=== PATIENT | female | born 1950 | race Caucasian/White ===

== ENCOUNTER 2018-06-23 17:06 | Inpatient (IN) ==
[2018-06-23] MEDS ORDERED: Morphine Sulfate Inj 2 MG/ML Vial IV.PUSH ONE (19:51)
[2018-06-23] MEDS ORDERED: Sod Chloride 0.9% Inj 1,000 ML IV.SIG SCH ×2 (20:00→22:00)
--- NOTE | 2018-06-23 20:14 | ED ---
HPI General Chief complaint: Abdominal Pain Stated complaint: s/p w/vomiting endoscopic ultrasound upper L abd Time Seen by Provider: 06/23/18 19:43 Source: patient Mode of arrival: ambulatory Limitations: no limitations History of Present Illness HPI narrative: 67yo F with PMH of HTN, bipolar disorder presents to the ED with c/o nausea, vomiting and upper abdominal pain after endoscopic ultrasound with biopsy of pancreatic cyst by Dr. Nunez today. Said she started vomiting after eating. Pain is mainly upper left abdomen but radiates across upper abdomen as well. Moderate severity. Constant. Denies any fever, chest pain, sob, dysuria, hematuria, focal weakness or numbness. Related Data Home Medications Medication Instructions Recorded Confirmed atorvastatin 10 mg PO DAILY 06/07/18 06/23/18 clonazepam 1 mg PO HS PRN 06/07/18 06/23/18 fluoxetine 20 mg PO DAILY 06/07/18 06/23/18 lamotrigine 100 mg PO DAILY 06/07/18 06/23/18 lisinopril 20 mg PO DAILY 06/07/18 06/23/18 pantoprazole 40 mg PO DAILY 06/07/18 06/23/18 tramadol 50 mg PO BID PRN 06/07/18 06/23/18 trazodone 50 mg PO HS 06/07/18 06/23/18 Allergies Allergy/AdvReac Type Severity Reaction Status Date / Time prochlorperazine Allergy Severe Tongue Verified 06/24/18 14:11 swelling Review of Systems ROS: all other systems reviewed are negative [facility] Medical History Medical History Bipolar 1 disorder (Acute) GERD (gastroesophageal reflux disease) (Acute) HTN (hypertension) (Acute) High cholesterol (Acute) Social History Social History Substance History: Past History Second Hand Smoke Exposure: No Smoking Status: Never smoker How Often Do You Have a Drink Containing Alcohol: Monthly or less Recent Travel in [facility] within the Last 8 Weeks: No Recent Out of Country Travel within the Last 8 Weeks: No Exam Narrative Exam Narrative: GENERAL: 67yo F in moderate distress. SKIN: Focused skin assessment warm/dry. HEAD: Atraumatic. Normocephalic. EYES: Pupils equal and round. No scleral icterus. No injection or drainage. ENT: No nasal bleeding or discharge. Mucous membranes pink and moist. NECK: Trachea midline. No JVD. CARDIOVASCULAR: Regular rate and rhythm. No murmur appreciated. RESPIRATORY: No accessory muscle use. Clear to auscultation. Breath sounds equal bilaterally. GASTROINTESTINAL: Abdomen soft, +TTP epigastric and left upper abdomen. No rebound tenderness. Nondistended. MUSCULOSKELETAL: No obvious deformities. No clubbing. No cyanosis. No edema. NEUROLOGICAL: Awake and alert. No obvious cranial nerve deficits. Motor grossly within normal limits. Normal speech. PSYCHIATRIC: Appropriate mood and affect; insight and judgment normal. Course Initial Documented Vital Signs Temperature 97.7 F 06/23/18 17:32 Pulse Rate 91 H 06/23/18 17:32 Respiratory Rate 16 06/23/18 17:32 Blood Pressure 92/64 L 06/23/18 17:32 Pulse Oximetry 100 06/23/18 17:32 Last Documented Vital Signs Temperature 98.2 F 06/24/18 12:00 Pulse Rate 70 06/24/18 12:00 Respiratory Rate 21 06/24/18 12:00 Blood Pressure 125/58 L 06/24/18 12:00 Pulse Oximetry 96 06/24/18 12:00 Medical Decision Making [facility] Narrative Medical decision making narrative: 67yo F with epigastric/left upper abdominal pain after EUS with FNA by Dr. Nunez this morning. Labs reviewed, no leukocytosis. H/H normal. BUN elevated at 21. Liver [place] [address]. [address] a/p showed acute pancreatitis. Solitary calcified gallstone is located near the gallbladder neck. I discussed this finding with GI physician Dr. Archer who feels that the acute pancreatitis is related to the procedure today. Recommends admission, NPO, IVF and pain control. Recommend GI consult and the commercial litigation associate physician will see them tomorrow. GI consult placed. Pt reevaluated at bedside after morphine and zofran and symptoms have improved. Discussed with Dr. Torres and accepted to her service. Medical Screen Exam Complete: Yes Emergency Medical Condition: Yes Differential Diagnosis Differential Diagnosis: Pancreatitis vs. perforation vs. hematoma Lab Data Result diagrams: 06/23/18 23:15 06/24/18 04:50 Lab Results 06/23/18 06/23/18 06/23/18 Range/Units 20:00 20:00 23:15 CBC w Diff Auto diff final Auto diff final WBC 11.4 H 10.8 (4.0-11.0) th/mm3 RBC 4.94 4.36 (4.00-5.30) mil/mm3 Hgb 14.2 12.8 (11.6-15.3) gm/dL Hct 43.2 38.1 (35.0-46.0) % MCV 87.3 87.4 (80.0-100.0) fL MCH 28.8 29.5 (27.0-34.0) pg MCHC 33.0 33.7 (32.0-36.0) % RDW 13.3 13.4 (11.6-17.2) % Plt Count 352 306 (150-450) th/mm3 MPV 8.0 7.9 (7.0-11.0) fL Neut % (Auto) 90.3 H 88.0 H (16.0-70.0) % Lymph % (Auto) 5.5 L 5.1 L (9.0-44.0) % [place] % (Auto) 3.7 3.7 (0.0-8.0) % Eos % (Auto) 0.4 0.1 (0.0-4.0) % Baso % (Auto) 0.1 3.1 H (0.0-2.0) % Neut # (Auto) 10.4 H 9.6 H (1.8-7.7) th/mm3 Lymph # (Auto) 0.6 L 0.5 L (1.0-4.8) th/mm3 [place] # (Auto) 0.4 0.4 (0.0-0.9) th/mm3 Eos # (Auto) 0.0 0.0 (0.0-0.4) th/mm3 Baso # (Auto) 0.0 0.3 H (0.0-0.2) th/mm3 WBC Differential . . Differential Comment . . Sodium 136 (136-145) meq/L Potassium 3.4 L (3.5-5.1) meq/L Chloride 101 (98-107) meq/L Carbon Dioxide 29.2 (21.0-32.0) meq/L Anion Gap 6 (5-15) meq/L BUN 21 H (7-18) mg/dL Creatinine 0.88 (0.50-1.00) mg/dL Estimated GFR 64 L (>89) mL/min Random Glucose 148 H (74-106) mg/dL Calcium 9.6 (8.5-10.1) mg/dL Total Bilirubin 0.4 (0.2-1.0) mg/dL AST 19 (15-37) U/L ALT 12 (10-53) U/L Alkaline Phosphatase 93 (45-117) U/L Total Protein 7.1 (6.4-8.2) g/dL Albumin 4.2 (3.4-5.0) g/dL Lipase 41032 H (73-393) U/L 06/23/18 06/24/18 06/24/18 Range/Units 23:15 04:50 04:50 CBC w Diff WBC (4.0-11.0) th/mm3 RBC (4.00-5.30) mil/mm3 Hgb (11.6-15.3) gm/dL Hct (35.0-46.0) % MCV (80.0-100.0) fL MCH (27.0-34.0) pg MCHC (32.0-36.0) % RDW (11.6-17.2) % Plt Count (150-450) th/mm3 MPV (7.0-11.0) fL Neut % (Auto) (16.0-70.0) % Lymph % (Auto) (9.0-44.0) % [place] % (Auto) (0.0-8.0) % Eos % (Auto) (0.0-4.0) % Baso % (Auto) (0.0-2.0) % Neut # (Auto) (1.8-7.7) th/mm3 Lymph # (Auto) (1.0-4.8) th/mm3 [place] # (Auto) (0.0-0.9) th/mm3 Eos # (Auto) (0.0-0.4) th/mm3 Baso # (Auto) (0.0-0.2) th/mm3 WBC Differential Differential Comment Sodium 139 (136-145) meq/L Potassium 3.9 (3.5-5.1) meq/L Chloride 108 H (98-107) meq/L Carbon Dioxide 25.2 (21.0-32.0) meq/L Anion Gap 6 (5-15) meq/L BUN 16 (7-18) mg/dL Creatinine 0.63 (0.50-1.00) mg/dL Estimated GFR Greater than 89 (>89) mL/min Random Glucose 119 H (74-106) mg/dL Calcium 8.1 L D (8.5-10.1) mg/dL Total Bilirubin (0.2-1.0) mg/dL AST (15-37) U/L ALT (10-53) U/L Alkaline Phosphatase (45-117) U/L Total Protein (6.4-8.2) g/dL Albumin (3.4-5.0) g/dL Lipase 08892 H 32959 H (73-393) U/L Imaging Data Radiologist's impression: Abdomen/Pelvis CT 06/23/18 19:51 CONCLUSION: 1. Prominent amount of fluid in the central abdomen surrounding the pancreas and extending into the mesentery without tracking into the dependent pelvis. Findings suggest acute pancreatitis. 2. Solitary calcified gallstone is located near the gallbladder neck. Discharge Plan Discharge Disposition Patient Disposition: ED Admit(ED Internal Use Only) Discharge Order Discharge Orders: ED Use Only Admit Order (Routine); Ordered 06/23/18 Ordered By: Cayla Duque Discharge Details Diagnosis: Pancreatitis Physicians Team ED Provider: Cayla Duque Primary Care Provider: UNKNOWN, Attending Provider: Jasmina Reyes Other Providers: Alivia Rushing Status ED Status: Left Department Discharge Information Discharge Date/Time: 06/23/18 23:30
[2018-06-23 20:20] LABS: Chloride 101 meq/L (98-107); Potassium 3.4 meq/L (3.5-5.1); Sodium 136 meq/L (136-145)
[2018-06-23 20:23] LABS: Calcium 9.6 mg/dL (8.5-10.1)
[2018-06-23 20:24] LABS: Albumin 4.2 g/dL (3.4-5.0); Anion Gap 6 meq/L (5-15); Blood Urea Nitrogen 21 mg/dL (7-18); Carbon Dioxide 29.2 meq/L (21.0-32.0); Glucose,Random 148 mg/dL (74-106)
[2018-06-23 20:26] LABS: Alanine Aminotransferase 12 U/L (10-53); Aspartate Aminotransferase 19 U/L (15-37)
[2018-06-23 20:27] LABS: Glomerular Filtration Rate 64 mL/min (>89)
[2018-06-23 20:28] LABS: Total Protein 7.1 g/dL (6.4-8.2)
[2018-06-23 20:29] LABS: Alkaline Phosphatase 93 U/L (45-117); Lipase 22048 U/L (73-393)
[2018-06-23] MEDS ORDERED: Morphine Inj 4 MG/ML Vial IV.PUSH ONE (20:35)
[2018-06-23 20:40] LABS: Baso % (Auto) 0.1 % (0.0-2.0); Eos % (Auto) 0.4 % (0.0-4.0); Hematocrit 43.2 % (35.0-46.0); Hemoglobin 14.2 gm/dL (11.6-15.3); Lymph # (Auto) 0.6 th/mm3 (1.0-4.8); Lymph % (Auto) 5.5 % (9.0-44.0); Mean Corpuscular Hemoglobin 28.8 pg (27.0-34.0); Mean Corpuscular Volume 87.3 fL (80.0-100.0); Mono # (Auto) 0.4 th/mm3 (0.0-0.9); Mono % (Auto) 3.7 % (0.0-8.0); Neut # (Auto) 10.4 th/mm3 (1.8-7.7); Neut % (Auto) 90.3 % (16.0-70.0); Platelet Count 352 th/mm3 (150-450); Red Blood Count 4.94 mil/mm3 (4.00-5.30); Red Cell Distribution Width 13.3 % (11.6-17.2); White Blood Count 11.4 th/mm3 (4.0-11.0)
--- NOTE | 2018-06-23 21:22 | CT ---
EXAM DATE: 06/23/2018 9:15 PM EST AGE/SEX: 67 years / Female INDICATIONS: Vomiting. Left upper quadrant pain. CLINICAL DATA: This is the patient's initial encounter. Patient reports that signs and symptoms have been present for 1 day and indicates a pain score of 5/10. MEDICAL/SURGICAL HISTORY: Gastroesophageal reflux disease. Bipolar disorder. High cholesterol. Hypertension. . ORAL CONTRAST: No oral contrast ingested. RADIATION DOSE: 6.61 CTDI (mGy) COMPARISON: [facility], CT ABDOMEN & PELVIS W CONTRAST, 06/07/2018. . TECHNIQUE: Multiple contiguous axial images were obtained through the abdomen and pelvis following b olus infusion of 97 ml Omnipaque 350 (iohexol) nonionic water-soluble contrast as a single exam dos e. No oral contrast ingested. Using automated exposure control and adjustment of the mA and/or kV ac cording to patient size, radiation dose was kept as low as reasonably achievable to obtain optimal di agnostic quality images. DICOM format image data is available electronically for review and comparis on. FINDINGS: Lower Lungs: The visualized lower lungs are clear. Liver: The liver has a homogeneous density without space-occupying lesion. There is no dilation of th e biliary tree. 7 mm calcified gallstone is located near the neck (previously was located in the body ). Spleen: Homogeneous density without enlargement. Pancreas: Abnormal. There is prominent fluid in the anterior pararenal space surrounding the head, b clifton, and tail of pancreas and extending into the central mesentery. No pancreatic ductal dilatation. 2 lobular cystic areas in the tail the pancreas are unchanged from prior CT in May 2018. Kidneys: Normal in size and shape. No evidence of mass or hydronephrosis. Adrenal Glands: Unremarkable. Aorta: The aorta and proximal iliac vessels are grossly unremarkable without aneurysmal dilation. Bowel/Mesentery: The bowel loops are grossly unremarkable. The cecum and sigmoid colon have a normal configuration. Abdominal Wall: Intact. Retroperitoneum: No evidence of adenopathy in the retrocrural, para-aortic, or deep pelvic regions. Bladder: Contours are smooth. No evidence of free fluid in the pelvis. No bowel/mesentery no dilated loops of small or large bowel. Reproductive Organs: No abnormal masses or calcifications seen. Inguinal: The inguinal region is unremarkable without evidence of adenopathy. Bony Structures: Unremarkable. CONCLUSION: 1. Prominent amount of fluid in the central abdomen surrounding the pancreas and extending into the mesentery without tracking into the dependent pelvis. Findings suggest acute pancreatitis. 2. Solitary calcified gallstone is located near the gallbladder neck. Electronically signed by: Raimundo Gifford MD Board Certified Radiologist 06/23/2018 9:21 PM EST
[2018-06-23] MEDS: Enoxaparin Inj 30 MG/0.3 ML Syringe SQ SCH (23:26)
[2018-06-23 23:47] LABS: Baso # (Auto) 0.3 th/mm3 (0.0-0.2); Baso % (Auto) 3.1 % (0.0-2.0); Eos % (Auto) 0.1 % (0.0-4.0); Hematocrit 38.1 % (35.0-46.0); Hemoglobin 12.8 gm/dL (11.6-15.3); Lymph # (Auto) 0.5 th/mm3 (1.0-4.8); Lymph % (Auto) 5.1 % (9.0-44.0); Mean Corpuscular HGB Conc 33.7 % (32.0-36.0); Mean Corpuscular Hemoglobin 29.5 pg (27.0-34.0); Mean Corpuscular Volume 87.4 fL (80.0-100.0); Mean Platelet Volume 7.9 fL (7.0-11.0); Mono # (Auto) 0.4 th/mm3 (0.0-0.9); Mono % (Auto) 3.7 % (0.0-8.0); Neut # (Auto) 9.6 th/mm3 (1.8-7.7); Platelet Count 306 th/mm3 (150-450); Red Blood Count 4.36 mil/mm3 (4.00-5.30); Red Cell Distribution Width 13.4 % (11.6-17.2); White Blood Count 10.8 th/mm3 (4.0-11.0)
[2018-06-24] MEDS: traZODone 50 MG Tablet PO PRN (00:01)
[2018-06-24] MEDS: Morphine Inj 4 MG/ML Vial IV.PUSH PRN ×6 (02:27→21:53)
[2018-06-24] MEDS: FLUoxetine 20 MG Capsule PO SCH (10:42)
[2018-06-24 12:17] LABS: Chloride 108 meq/L (98-107); Potassium 3.9 meq/L (3.5-5.1); Sodium 139 meq/L (136-145)
[2018-06-24] MEDS ORDERED: clonazePAM 1 MG Tablet PO PRN (12:33)
[2018-06-24 12:36] LABS: Anion Gap 6 meq/L (5-15); Blood Urea Nitrogen 16 mg/dL (7-18); Calcium 8.1 mg/dL (8.5-10.1); Carbon Dioxide 25.2 meq/L (21.0-32.0); Glomerular Filtration Rate Greater Than 89 mL/min (>89); Glucose,Random 119 mg/dL (74-106)
[2018-06-24] MEDS: lamoTRIgine 100 MG Tablet PO SCH (13:13)
[2018-06-24] MEDS: Piperacil/Tazo 4.5 GM Premix 4.5 GM/100 ML BAG IV.SIG SCH ×2 (13:14→20:19)
[2018-06-24] MEDS ORDERED: Diatrizoate Meglum/Diatrizoate Sod Liq 9 ML UDC PO ONE (16:23)
--- NOTE | 2018-06-24 17:18 | P.HP ---
History of Present Illness Service: medicine Primary Care Physician: UNKNOWN History of Present Illness: This is the second time H+P is done on this patient as first did not save. 67 year old female presents to the ER after developing nausea and vomiting and upper abdominal pain . Earlier in the day she had undergone an EUS with FNA of cystic mass of tail of the pancreas. She state she did well after the procedure until she ate something at home. The mass was an incidental finding on ct scan after she presented to the ER earlier in the month for lower abdominal pain. She has been diagnosed with inguinal hernia and has been following with general surgery for this. On presentation her lipase was [id number] workers compensation claims specialist was called from the ER and per report he indicated this may have secondary to the biopsy and indicated the patient be admitted to the medical service and they would be seen today. The patient is still having abdominal pain and nausea. No fever or chills, no emesis since last pm. - Diagnosis (1) Pancreatitis (2) Bipolar disorder Inpatient Certification: I certify that the inpatient services were ordered in accordance with Medicare regulations governing the order. This includes certification that hospital inpatient services are reasonable and necessary and in the case of services not specified as inpatient-only under 42 CFR 419.22(n), that they are appropriately provided as inpatient services in accordance to with the 2-midnight benchmark under 43 CFR 412.3(e) Estimated Total Length of Stay (Days): 3 Plans for Post Hospital Care: Not yet determined Review of Systems Constitutional: Denies chills, Denies fever(s) Ears, Nose, Mouth, and Throat: Denies dry mouth Cardiovascular: Denies chest pain Respiratory: Denies shortness of breath Gastrointestinal: Reports abdominal pain, Reports nausea, Reports vomiting Comments: diffuse abdominal pain mainly across entire upper abdomen, bloating Musculoskeletal: Reports back pain, Reports neck pain Comments: shoulder pain Comments: has been manic with her bipolar but has been having her medications adjusted and doing much better Allergic/Immunologic: Reports tongue swelling PMFSH - History History Provided By: Patient, Family Member, Medical Record - Medical History Medical History: Medical History (Last Reviewed 06/24/18 @ 16:47 by Jasmina Reyes MD) Bipolar 1 disorder GERD (gastroesophageal reflux disease) HTN (hypertension) High cholesterol - Tobacco History Second Hand Smoke Exposure: No Tobacco Use In Past 30 Days: No Smoking Status: Never smoker - Alcohol History How Often Do You Have a Drink Containing Alcohol: Monthly or less - Substance Use History Substance History: Past History - Substance Use Type Marijuana Status: Sustained Remission Route Used: Inhalation Reason for Use: Get High - Travel History Recent Travel in the [place] Within the Last 8 Weeks: No Recent Travel Out of the Country Within the Last 8 Weeks: No - Immunization History Tetanus Immunization: <5 Years Hx Influenza Vaccine This Season: Yes Medications and Allergies Active Medications: Active Medications Atorvastatin Calcium (Lipitor) 10 mg PO DAILY [facility] Last Admin: 06/24/18 10:42 Dose: 10 mg Clonazepam (Klonopin) 1 mg PO HS PRN PRN Reason: Sleep Enoxaparin Sodium (Lovenox Inj) 30 mg SQ Q24H [facility] Last Admin: 06/23/18 23:26 Dose: 30 mg Fluoxetine HCl (Prozac) 20 mg PO DAILY [facility] Last Admin: 06/24/18 10:42 Dose: 20 mg Potassium Chloride/Sodium Chloride (Ns + Kcl 20 Meq Inj) 1,000 mls @ 200 mls/ hr IV.CONT .Q5H [facility] Last Infusion: 06/24/18 16:20 Dose: Infused Piperacillin/Tazobactam/Dextrose (Zosyn 4.5 Gm Premix) 4.5 gm in 100 mls @ 200 mls/hr IV.SIG Q6H [facility] Last Infusion: 06/24/18 13:47 Dose: Infused Lamotrigine (Lamictal) 100 mg PO DAILY [facility] Last Admin: 06/24/18 13:13 Dose: 100 mg Morphine Sulfate (Morphine Inj) 4 mg IV.PUSH Q4H PRN PRN Reason: pain 1-10 &/or fever > 101F Last Admin: 06/24/18 13:28 Dose: 4 mg Ondansetron HCl (Zofran Inj) 8 mg IV.PUSH Q6H PRN PRN Reason: NAUSEA OR VOMITING Last Admin: 06/24/18 13:11 Dose: 8 mg Pantoprazole Sodium (Protonix) 40 mg PO DAILY [facility] Last Admin: 06/24/18 10:42 Dose: 40 mg Paroxetine HCl (Paxil) 10 mg PO DAILY [facility] Last Admin: 06/24/18 13:13 Dose: 10 mg Sodium Chloride (Ns Flush) 2 ml IV.FLUSH BID [facility] Last Admin: 06/24/18 10:34 Dose: Not Given Sodium Chloride (Ns Flush) 2 ml IV.FLUSH PRN PRN PRN Reason: FLUSH AFTER USING IV ACCESS Trazodone HCl (Desyrel) 50 mg PO HS PRN PRN Reason: INSOMNIA Last Admin: 06/24/18 00:01 Dose: 50 mg Allergies Allergy/AdvReac Type Severity Reaction Status Date / Time prochlorperazine Allergy Severe Tongue Verified 06/24/18 14:11 swelling Home Medications Medication Instructions Recorded Confirmed Type atorvastatin 10 mg PO DAILY 06/07/18 06/23/18 History clonazepam 1 mg PO HS PRN 06/07/18 06/23/18 History fluoxetine 20 mg PO DAILY 06/07/18 06/23/18 History lamotrigine 100 mg PO DAILY 06/07/18 06/23/18 History lisinopril 20 mg PO DAILY 06/07/18 06/23/18 History pantoprazole 40 mg PO DAILY 06/07/18 06/23/18 History tramadol 50 mg PO BID PRN 06/07/18 06/23/18 History trazodone 50 mg PO HS 06/07/18 06/23/18 History paroxetine HCl [Paxil] 10 mg PO DAILY 06/24/18 06/24/18 History Exam Vital signs: Vital Signs 06/23/18 17:32 06/23/18 20:35 06/23/18 21:16 Temperature 97.7 F Pulse Rate 91 H 80 92 H Respiratory Rate 16 Blood Pressure 92/64 L 138/79 142/72 H Pulse Oximetry 100 99 98 06/23/18 22:10 06/23/18 23:30 06/24/18 00:00 Temperature 98.9 F 97.2 F L Pulse Rate 90 82 Respiratory Rate 20 18 Blood Pressure 141/77 H 153/74 H 130/73 Pulse Oximetry 95 06/24/18 08:00 06/24/18 12:00 Temperature 98.8 F 98.2 F Pulse Rate 83 70 Respiratory Rate 21 21 Blood Pressure 127/67 125/58 L Pulse Oximetry 95 96 Intake & Output 06/23/18 06/24/18 06/24/18 18:59 06:59 18:59 Intake Total 2995 / 2995 700 / 700 Output Total 400 / 400 Balance 2995 / 2995 300 / 300 Weight 58 kg 58 kg Intake: IV 2875 / 2875 700 / 700 NS + KCl 20 mEq Inj 1,000 ML @ 875 / 875 600 / 600 200 mls/hr IV.CONT .Q5H [facility] Rx# :[id number] Zosyn 4.5 GM Premix 4.5 gm In 100 / 100 100 ml @ 200 mls/hr IV.SIG Q6H [facility] Rx#:[id number] NS Inj 1,000 ML @ 1000 mls/hr 1999 / 1999 IV.SIG BOLUS [facility] Rx#:[id number] Oral 0 / 0 Oral Supplement 120 / 120 Output: Urine 400 / 400 Other: # Voids 1 Date of Last Bowel Movement 06/23/18 06/24/18 Weight On Admission 55.776 kg - Constitutional moderate distress - Routine HEENT Exam Head: Present: normocephalic Eye: Present: EOMI ENT: Present: mucous membranes dry - Routine Neck Exam Present: supple - Routine Respiratory Exam Present: CTA bilaterally - Routine Cardiovascular Exam Present: RRR - Routine Abdominal Exam Present: normoactive bowel sounds, distended Comments: diffusely tender , increased across upper abdomen and midepigastric region - Routine Extremities Exam Present: full ROM. Absent: edema - Routine Skin Exam Present: intact, dry, warm - Routine Neurological Exam Present: alert, oriented X3 Results - Labs CBC & Chem 7: 06/23/18 23:15 06/24/18 04:50 Labs: Laboratory Results - last 24 hr 06/23/18 06/23/18 06/23/18 20:00 20:00 23:15 CBC w Diff Auto diff final Auto diff final WBC 11.4 H 10.8 RBC 4.94 4.36 Hgb 14.2 12.8 Hct 43.2 38.1 MCV 87.3 87.4 MCH 28.8 29.5 MCHC 33.0 33.7 RDW 13.3 13.4 Plt Count 352 306 MPV 8.0 7.9 Neut % (Auto) 90.3 H 88.0 H Lymph % (Auto) 5.5 L 5.1 L [place] % (Auto) 3.7 3.7 Eos % (Auto) 0.4 0.1 Baso % (Auto) 0.1 3.1 H Neut # (Auto) 10.4 H 9.6 H Lymph # (Auto) 0.6 L 0.5 L [place] # (Auto) 0.4 0.4 Eos # (Auto) 0.0 0.0 Baso # (Auto) 0.0 0.3 H WBC Differential . . Differential Comment . . Sodium 136 Potassium 3.4 L Chloride 101 Carbon Dioxide 29.2 Anion Gap 6 BUN 21 H Creatinine 0.88 Estimated GFR 64 L Random Glucose 148 H Calcium 9.6 Total Bilirubin 0.4 AST 19 ALT 12 Alkaline Phosphatase 93 Total Protein 7.1 Albumin 4.2 Lipase 07271 H 06/23/18 06/24/18 06/24/18 23:15 04:50 04:50 CBC w Diff WBC RBC Hgb Hct MCV MCH MCHC RDW Plt Count MPV Neut % (Auto) Lymph % (Auto) [place] % (Auto) Eos % (Auto) Baso % (Auto) Neut # (Auto) Lymph # (Auto) [place] # (Auto) Eos # (Auto) Baso # (Auto) WBC Differential Differential Comment Sodium 139 Potassium 3.9 Chloride 108 H Carbon Dioxide 25.2 Anion Gap 6 BUN 16 Creatinine 0.63 Estimated GFR Greater than 89 Random Glucose 119 H Calcium 8.1 L D Total Bilirubin AST ALT Alkaline Phosphatase Total Protein Albumin Lipase 15585 H 84391 H - Imaging Impressions Abdomen/Pelvis CT 06/23/18 19:51 CONCLUSION: 1. Prominent amount of fluid in the central abdomen surrounding the pancreas and extending into the mesentery without tracking into the dependent pelvis. Findings suggest acute pancreatitis. 2. Solitary calcified gallstone is located near the gallbladder neck. Caprini VTE Risk Assessment Caprini VTE Risk Assessment: Moderate/High Risk (score >= 2) Caprini Risk Assessment Model: Point Value = 1 Point Value = 2 Point Value = 3 Point Value = 5 Age 41-60 Minor surgery BMI > 25 kg/m2 Swollen legs Varicose veins or History of unexplained or recurrent spontaneous Oral contraceptives or hormone replacement Sepsis (< 1 month) Serious lung disease, including pneumonia (< 1 month) Abnormal pulmonary function Acute myocardial infarction Congestive heart failure (< 1 month) History of inflammatory bowel disease Medical patient at bed rest Age 61-74 Arthroscopic surgery Major open surgery (> 45 min) Laparoscopic surgery (> 45 min) Malignancy Confined to bed (> 72 hours) Immobilizing plaster cast Central venous access Age >= 75 History of VTE Family history of VTE Factor V Leiden Prothrombin [id number] Lupus anticoagulant Anticardiolipin antibodies Elevated serum homocysteine Heparin-induced thrombocytopenia Other congenital or acquired thrombophilia Stroke (< 1 month) Elective arthroplasty Hip, pelvis, or leg fracture Acute spinal cord injury (< 1 month) Prophylaxis Regimen: Total Risk Factor Score Risk Level Prophylaxis Regimen 0-1 Low Early ambulation 2 Moderate Order ONE of the following: *Sequential Compression Device (SCD) *Heparin 5000 units SQ BID 3-4 Higher Order ONE of the following medications: *Heparin 5000 units SQ TID *Enoxaparin/Lovenox 40 mg SQ daily (WT < 150 kg, CrCl > 30 mL/min) *Enoxaparin/Lovenox 30 mg SQ daily (WT < 150 kg, CrCl > 10-29 mL/min) *Enoxaparin/Lovenox 30 mg SQ BID (WT < 150 kg, CrCl > 30 mL/min) AND/OR *Sequential Compression Device (SCD) 5 or more Highest Order ONE of the following medications: *Heparin 5000 units SQ TID (Preferred with Epidurals) *Enoxaparin/Lovenox 40 mg SQ daily (WT < 150 kg, CrCl > 30 mL/min) *Enoxaparin/Lovenox 30 mg SQ daily (WT < 150 kg, CrCl > 10-29 mL/min) *Enoxaparin/Lovenox 30 mg SQ BID (WT < 150 kg, CrCl > 30 mL/min) AND *Sequential Compression Device (SCD) Assessment and Plan - Assessment (1) Pancreatitis Code(s): K85.90 - Acute pancreatitis without necrosis or infection, unspecified Status: Acute Plan: acute pancreatitis after eus with fna for pancreatic tail mass. Will continue with IV fluids , pain control. Discussed case with GI who will be in to see her. Her surgeon looked at her ct but did not feel that at this point was a surgical case, also discussed with IR who reviewed CT and this point felt no procedure was indicated. Will continue to manage medically. [facility] . She is unable to take many antiemetics due to her allergy history , Will increase her zofran to 8mg. (2) Bipolar disorder Code(s): F31.9 - Bipolar disorder, unspecified Status: Acute Plan: per report she has been doing better with recent adjustment of her medications. will try to continue her regimen. - Plan Discussed Condition With: patient and daughter (1) Pancreatitis Qualifiers: Chronicity: acute (2) Bipolar disorder Qualifiers: Active/Remission status: currently active
--- NOTE | 2018-06-24 17:38 | MB ---
cc: Alivia Rushing MD DATE: 06/24/2018 REFERRING PHYSICIAN: Dr. Brian Richard REASON FOR CONSULTATION: Post-endoscopic ultrasound, pancreatitis, abdominal pain. HISTORY OF PRESENT ILLNESS: Ms. Lee is a very pleasant 67-year-old lady known to us from outpatient visits. She was followed up in the office for pancreatic tail cystic lesion. She underwent an endoscopic ultrasound yesterday with Dr. Nunez with fine needle aspiration. She was discharged home. Post procedure, the patient came to the emergency room for evaluation of severe abdominal pain, nausea and vomiting, workup suggesting possible pancreatitis. She was admitted to the hospital for further evaluation and treatment. The patient had a CT done in the emergency room, was evaluated by Dr. Mcgrath who is following her on an outpatient basis for an inguinal hernia. He became concerned with the amount of fluid noted in her abdomen, advised to transfer her to [facility] hospital and possible interventional radiology consultation with drainage . Dr. Mcgrath was consulted officially too. The patient feels better than yesterday, her pain is slightly better. She responds well to morphine. No nausea, vomiting. No bowel movements. No fever. 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 ALLERGIES: PROCHLORPERAZINE. MEDICATIONS: 1. Atorvastatin. 2. Clonazepam. 3. Enoxaparin. 4. Fluoxetine. 5. Lamotrigine. 6. Morphine. 7. Zofran. 8. Protonix. 9. Zosyn. 10. Potassium chloride. 11. Trazodone. At home, she is on: 1. Trazodone. 2. Tramadol. 3. Pantoprazole. 4. Lisinopril. 5. Lamotrigine. 6. Fluoxetine. 7. Clonazepam. 8. Atorvastatin. SOCIAL HISTORY: She denies smoking, past history of substance use, but not currently. Alcohol occasionally. REVIEW OF SYSTEMS: CONSTITUTIONAL: She denies any fever, chills, weight loss or weight gain. ENT: No alteration of baseline hearing or visual activity. PULMONARY: Denies any chest pain, shortness of breath. GASTROINTESTINAL: As above. GENITOURINARY: Denies dysuria or hematuria. HEMATOLOGIC: No history of anemia or bleeding disorder. SKIN: No alteration in baseline skin lesion. NEUROLOGIC: No history of TIA or CVA kind of symptoms. PHYSICAL EXAMINATION: GENERAL: She is sitting comfortably in bed, in no acute distress. VITAL SIGNS: Temperature is 98.2, pulse is 70, blood pressure 125/58, saturation 96. HEENT: PERRLA. NECK: No JVD. No lymphadenopathy. CHEST: Clear to auscultation and palpation. CARDIOVASCULAR: S1, S2. No murmur. ABDOMEN: Soft, but very tender in the right upper quadrant, mid epigastrium and lower abdomen. CENTRAL NERVOUS SYSTEM: Awake, alert, oriented x3. No focal signs identified. LABORATORY DATA: Her hemoglobin 12.8 was 14.2. White count 11.4 on admission, currently 10.8, platelets 306. Chemistry suggestive of normal liver enzymes. Lipase was 22,048, currently 16,543, glucose 119, was 148. The patient had a CT abdomen and pelvis done yesterday upon her admission that suggested presence of prominent amount of fluid in the central abdomen surrounding the pancreas and extending into the mesentery without tracking into the deep pelvis findings suggestive of acute pancreatitis, solitary calcified gallstones located near the gallbladder neck. IMPRESSION: Pancreatitis post endoscopic ultrasound, no indication of active bleeding or acute abdomen at this time. RECOMMENDATIONS: Monitor CBC, liver enzymes, lipase. Agree with transfer to the [facility] for possible further evaluation and treatment. The patient is a transfer to the intensive care unit per Dr. Mcgrath's request. Consult Dr. Mcgrath. Interventional radiology was already consulted. No intervention at this time. repeat CT abdomen and pelvis. Continue IV antibiotics, n.p.o., supportive care. I would like to thank Dr. Brian Richard for referring her to our office for consultation. Findings and plan were discussed with the patient in detail. Thank you again. We will Will continue to follow the patient along with you. Alivia Rushing MD BSB/ct , 04:21 PM , 04:34 PM MTDD
[2018-06-24] MEDS: Pantoprazole Inj 40 MG Vial IV.PUSH SCH (17:46)
--- NOTE | 2018-06-24 19:31 | ECG ---
Date Performed: 06/24/2018 Time Performed: 18:57:38 PTAGE: 67 years EKG: Sinus rhythm NORMAL ECG No significant change from prior electrocardiogram. PREVIOUS TRACING : 06/23/2018 09.13 DOCTOR: Negro Monique Interpretating Date/Time 06/24/2018 19:31:16
[2018-06-24 20:17] LABS: Baso % (Auto) 0.2 % (0.0-2.0); Eos % (Auto) 0.3 % (0.0-4.0); Hematocrit 38.1 % (35.0-46.0); Hemoglobin 12.8 gm/dL (11.6-15.3); Lymph # (Auto) 0.7 th/mm3 (1.0-4.8); Lymph % (Auto) 5.7 % (9.0-44.0); Mean Corpuscular HGB Conc 33.5 % (32.0-36.0); Mean Corpuscular Hemoglobin 29.7 pg (27.0-34.0); Mean Corpuscular Volume 88.7 fL (80.0-100.0); Mean Platelet Volume 7.6 fL (7.0-11.0); Mono # (Auto) 0.9 th/mm3 (0.0-0.9); Mono % (Auto) 7.4 % (0.0-8.0); Neut # (Auto) 10.2 th/mm3 (1.8-7.7); Neut % (Auto) 86.4 % (16.0-70.0); Platelet Count 292 th/mm3 (150-450); Red Cell Distribution Width 14.2 % (11.6-17.2); White Blood Count 11.8 th/mm3 (4.0-11.0)
[2018-06-24 20:34] LABS: Anion Gap 5 meq/L (5-15); Blood Urea Nitrogen 10 mg/dL (7-18); Carbon Dioxide 27.3 meq/L (21.0-32.0); Chloride 104 meq/L (98-107); Potassium 3.9 meq/L (3.5-5.1); Sodium 136 meq/L (136-145)
[2018-06-24 20:35] LABS: Alanine Aminotransferase 9 U/L (10-53); Albumin 3.2 g/dL (3.4-5.0); Aspartate Aminotransferase 17 U/L (15-37); Calcium 8.2 mg/dL (8.5-10.1); Glucose,Random 84 mg/dL (74-106)
[2018-06-24 20:37] LABS: Alkaline Phosphatase 73 U/L (45-117); Lipase 13948 U/L (73-393); Total Protein 6.2 g/dL (6.4-8.2)
--- NOTE | 2018-06-24 21:42 | CT ---
EXAM DATE: 06/24/2018 9:32 PM EST AGE/SEX: 67 years / Female INDICATIONS: Abdominal pain. Nausea and vomiting. CLINICAL DATA: This is the patient's initial encounter. Patient reports that signs and symptoms have been present for 1 day and indicates a pain score of 8/10. MEDICAL/SURGICAL HISTORY: Hypertension. Cholecystectomy. ORAL CONTRAST: No oral contrast ingested. RADIATION DOSE: 11.68 CTDI (mGy) COMPARISON: [facility], CT ABDOMEN & PELVIS W CONTRAST, 06/23/2018. [facility], MR ABDOMEN W/ AND W/O CONTRAST , 06/15/2018. [facility], CT ABDOMEN & PELVIS W CONTRAST, 06/07/2018. . TECHNIQUE: Multiple contiguous axial images were obtained through the abdomen and pelvis following b olus infusion of 80 ml Omnipaque 350 (iohexol) nonionic water-soluble contrast as a single exam dos e. No oral contrast ingested. Using automated exposure control and adjustment of the mA and/or kV ac cording to patient size, radiation dose was kept as low as reasonably achievable to obtain optimal di agnostic quality images. DICOM format image data is available electronically for review and comparis on. FINDINGS: Abdomen CT: The spleen, kidneys, adrenals are unremarkable. Approximate 9 mm simple cyst is present in hepatic dome. There is slight ascites throughout the abdomen and pelvis extending down into the paracolic gu tters and all the way down into the cul-de-sac. There is haziness to the fat planes in the upper abdo men particularly around the pancreas. There are multiple cystic areas in the tail of the pancreas the largest one measures 1.9 cm in size. Pancreas appears slightly swollen, however adequately perfused. There is no evidence for any appreciable pathological adenopathy, or bowel obstruction. Tiny right pleural effusion is seen. Slight bilateral lung base atelectasis and/or infiltrate is seen. Gallstone is present with vicarious excretion of contrast into the gallbladder which also appears to be disten ded measures almost 9.[address] CT: There is no evidence for mass, abscess formation, or any significant adenopathy within the pelvis. Th ere is lumbar scoliosis with degenerative changes lower lumbosacral spine not adequately characterize d. CONCLUSION: There is more fluid within the peritoneal cavity since the prior exam and the gallbladder appears more distended . Acute pancreatitis is of primary consideration with cystic areas in the deon l of the pancreas which were evaluated on the patient's prior abdominal MRI from 06/2018 could be pseu docyst versus cystic neoplasm. Electronically signed by: Susu Goodman MD Board Certified Radiologist 06/24/2018 9:41 PM EST
[2018-06-24] MEDS: Enoxaparin Inj 30 MG/0.3 ML Syringe SQ SCH (22:29)
[2018-06-25] MEDS: Piperacil/Tazo 4.5 GM Premix 4.5 GM/100 ML BAG IV.SIG SCH ×4 (01:52→20:53)
[2018-06-25] MEDS: Morphine Inj 4 MG/ML Vial IV.PUSH PRN ×2 (03:47→09:00)
[2018-06-25 06:19] LABS: Baso % (Auto) 0.3 % (0.0-2.0); Eos # (Auto) 0.1 th/mm3 (0.0-0.4); Eos % (Auto) 0.6 % (0.0-4.0); Hematocrit 32.3 % (35.0-46.0); Lymph # (Auto) 0.8 th/mm3 (1.0-4.8); Lymph % (Auto) 7.3 % (9.0-44.0); Mean Corpuscular HGB Conc 34.1 % (32.0-36.0); Mean Corpuscular Hemoglobin 29.8 pg (27.0-34.0); Mean Corpuscular Volume 87.2 fL (80.0-100.0); Mean Platelet Volume 7.4 fL (7.0-11.0); Mono % (Auto) 9.5 % (0.0-8.0); Neut # (Auto) 8.7 th/mm3 (1.8-7.7); Neut % (Auto) 82.3 % (16.0-70.0); Platelet Count 246 th/mm3 (150-450); Red Blood Count 3.71 mil/mm3 (4.00-5.30); Red Cell Distribution Width 13.9 % (11.6-17.2); White Blood Count 10.5 th/mm3 (4.0-11.0)
[2018-06-25 06:58] LABS: Alanine Aminotransferase 9 U/L (10-53); Albumin 2.6 g/dL (3.4-5.0); Anion Gap 5 meq/L (5-15); Aspartate Aminotransferase 17 U/L (15-37); Blood Urea Nitrogen 8 mg/dL (7-18); Calcium 8.1 mg/dL (8.5-10.1); Carbon Dioxide 27.2 meq/L (21.0-32.0); Chloride 106 meq/L (98-107); Glucose,Random 81 mg/dL (74-106); Potassium 4.2 meq/L (3.5-5.1); Sodium 138 meq/L (136-145)
[2018-06-25 07:00] LABS: Alkaline Phosphatase 62 U/L (45-117); Lipase 6045 U/L (73-393); Total Protein 5.3 g/dL (6.4-8.2)
[2018-06-25] MEDS: lamoTRIgine 100 MG Tablet PO SCH (08:52)
[2018-06-25] MEDS: FLUoxetine 20 MG Capsule PO SCH (08:52)
[2018-06-25] MEDS ORDERED: Ketorolac Inj 30 MG/ML (IVP) Vial IV.PUSH ONE (12:50)
[2018-06-25] MEDS ORDERED: Sodium Chlor 0.9% Inj 500 ML IV.SIG SCH (12:50)
[2018-06-25] MEDS ORDERED: HYDROmorphone PF Inj 1 MG/ML Ampul IV.PUSH PRN (12:52)
--- NOTE | 2018-06-25 12:52 | P.PNIM ---
Subjective Interval history: Pt is a 67 y/o F who underwent EUS with FNA of cystic mass of the pancreatic tail 06/23/[address] Jae Nunez. Pt developed worsening abdominal pain at home following the procedure. On admission pt's lipase was elevated at 22K (06/23) and has improved to 6,045 (). Pt had CT A/P (06/24) Pt c/o continued abdominal pain despite current regimen of pain medication. Pt is NPO Physical Exam Vital signs: Last Vital Signs Temp 99.5 F 06/25/18 08:00 Pulse 85 06/25/18 08:00 Resp 20 06/25/18 08:00 BP 89/55 L 06/25/18 08:00 Pulse Ox 95 06/25/18 08:00 Results Labs CBC & Chem 7: 06/27/18 06:36 06/27/18 06:36 Assessment and Plan Assessment (1) Pancreatitis: Code(s): K85.90 - Acute pancreatitis without necrosis or infection, unspecified Status: Acute (2) Bipolar disorder: Code(s): F31.9 - Bipolar disorder, unspecified Status: Acute Plan 1) Pancreatitis, s/p EUS - Pt is a 67 y/o F who underwent EUS with FNA of cystic mass of the pancreatic tail 06/23/[address] Jae Nunez. - Pt developed worsening abdominal pain at home following the procedure. - On admission pt's lipase was elevated at 22K (06/23) and has improved to 6,045 (/). - CT A/P (06/24) - fluid within the peritoneal cavity since the prior exam and the gallbladder appears more distended . - Acute pancreatitis is of primary consideration with cystic areas in the tail of the pancreas which were evaluated on the patient's prior abdominal MRI from 06/2018 could be pseudocyst versus cystic neoplasm Pt c/o continued abdominal pain despite current regimen of pain medication. - Pt is NPO - Case d/w Dr. Trejo (06/25/18) - Case d/w Dr. Lake (06/25/18). He will consult. - Continue aggressive fluid support - Continue pain mgmt was BP readings will allow - repeat cbc, CMP, lipase in AM 2) hypotensive - likely d/t pancreatitis and pain medication - No fever, no leukocytosis - continue IVFs - parameters on pain medications. Progress Note: Quality VTE Deep Vein Thrombosis/Pulmonary Embolism Present on Admission: No _ (1) Bipolar disorder Qualifiers: Active/Remission status: currently active Current bipolar episode type: Current episode severity: Most recent bipolar episode type: Psychotic features: (2) Pancreatitis Qualifiers: Acute pancreatitis complication: Chronicity: acute Pancreatitis type:
[2018-06-25] MEDS ORDERED: Sincalide Inj 5 MCG Vial IV.PUSH ONE (12:54)
--- NOTE | 2018-06-25 12:58 | P.PNGI ---
Subjective Interval history: Abdominal distension, pain Physical Exam Vital signs: Vital Signs 06/24/18 16:00 06/24/18 17:00 06/24/18 18:00 Temperature 99.4 F 99.1 F 100.8 F H Pulse Rate 89 93 H 96 H Respiratory Rate 20 15 18 Blood Pressure 118/56 L 142/80 H 129/66 Pulse Oximetry 95 98 96 06/24/18 19:10 06/24/18 23:14 06/25/18 00:24 Temperature 99.2 F 99.4 F Pulse Rate 96 H 88 89 Respiratory Rate 18 18 Blood Pressure 147/76 H 100/56 L Pulse Oximetry 98 93 L 06/25/18 03:49 06/25/18 07:59 06/25/18 08:00 Temperature 99.1 F 99.5 F Pulse Rate 88 88 85 Respiratory Rate 18 20 Blood Pressure 102/61 89/55 L Pulse Oximetry 94 L 95 Intake & Output 06/24/18 06/25/18 06/25/18 18:59 06:59 18:59 Intake Total 700 / 700 2087 1100 / 1100 Output Total 800 / 800 Balance -100 / -100 2087 1100 / 1100 Weight 58 kg Intake: IV 700 / 700 2087 / 2087 1100 / 1100 NS + KCl 20 mEq Inj 1,000 ML @ 600 / 600 1887 / 188 1000 / 1000 200 mls/hr IV.CONT .Q5H NICOLE Rx# :[id number] Zosyn 4.5 GM Premix 4.5 gm In 100 / 100 200 / 200 100 / 100 100 ml @ 200 mls/hr IV.SIG Q6H NICOLE Rx#:[id number] Oral 0 / 0 0 / 0 Output: Urine 800 / 800 Other: # Voids 1 5 Date of Last Bowel Movement 06/23/18 06/23/18 06/23/18 # Bowel Movements 0 0 - Constitutional no acute distress - Routine HEENT Exam Head: Present: normocephalic - Routine Neck Exam Present: supple - Routine Respiratory Exam Present: CTA bilaterally - Routine Cardiovascular Exam Present: RRR - Routine Abdominal Exam Present: soft, tenderness, distended Results - Labs CBC & Chem 7: 06/25/18 05:43 06/25/18 05:43 Laboratory Results - last 24 hr 06/24/18 06/24/18 06/25/18 19:30 19:30 05:43 WBC 11.8 H 10.5 RBC 4.30 3.71 L Hgb 12.8 11.0 L Hct 38.1 32.3 L MCV 88.7 87.2 MCH 29.7 29.8 MCHC 33.5 34.1 RDW 14.2 13.9 Plt Count 292 246 MPV 7.6 7.4 Neut % (Auto) 86.4 H 82.3 H Lymph % (Auto) 5.7 L 7.3 L [place] % (Auto) 7.4 9.5 H Eos % (Auto) 0.3 0.6 Baso % (Auto) 0.2 0.3 Neut # (Auto) 10.2 H 8.7 H Lymph # (Auto) 0.7 L 0.8 L [place] # (Auto) 0.9 1.0 H Eos # (Auto) 0.0 0.1 Baso # (Auto) 0.0 0.0 WBC Differential . . Differential Comment Auto diff final Auto diff final Sodium 136 Potassium 3.9 Chloride 104 Carbon Dioxide 27.3 Anion Gap 5 BUN 10 Creatinine 0.72 Random Glucose 84 Calcium 8.2 L Total Bilirubin 0.7 AST 17 ALT 9 L Alkaline Phosphatase 73 Total Protein 6.2 L D Albumin 3.2 L D Lipase 06007 H 06/25/18 05:43 WBC RBC Hgb Hct MCV MCH MCHC RDW Plt Count MPV Neut % (Auto) Lymph % (Auto) [place] % (Auto) Eos % (Auto) Baso % (Auto) Neut # (Auto) Lymph # (Auto) [place] # (Auto) Eos # (Auto) Baso # (Auto) WBC Differential Differential Comment Sodium 138 Potassium 4.2 Chloride 106 Carbon Dioxide 27.2 Anion Gap 5 BUN 8 Creatinine 0.69 Random Glucose 81 Calcium 8.1 L Total Bilirubin 0.8 AST 17 ALT 9 L Alkaline Phosphatase 62 Total Protein 5.3 L D Albumin 2.6 L D Lipase 6045 H - Imaging Impressions Abdomen/Pelvis CT 06/24/18 00:00 CONCLUSION: There is more fluid within the peritoneal cavity since the prior exam and the gallbladder appears more distended . Acute pancreatitis is of primary consideration with cystic areas in the tail of the pancreas which were evaluated on the patient's prior abdominal MRI from 06/2018 could be pseudocyst versus cystic neoplasm. Assessment and Plan - Plan Seen and examined in the presence of family. Still with abdominal pain and distension. CT reviewed, HIDA scan and surgical consult ordered. Aggressive IVF, Discussed with Dr العراقي.
[2018-06-25] MEDS ORDERED: Sod Chloride 0.9% Inj 1,000 ML IV.SIG SCH (16:16)
[2018-06-25] MEDS: Pantoprazole Inj 40 MG Vial IV.PUSH SCH (18:10)
--- NOTE | 2018-06-25 18:16 | P.CONGS ---
[facility] Gen Surgery Consult Note Consult date: 06/25/18 Narrative: 67 yo F with acute pancreatitis after EUS with FNA of cystic mass of pancreatic tail on 06/23/18. Lipase initially 22,000 now 6000. Pain has persistent although now after first dose of toradol earlier it is much better. Feels bloated. CT a/p was performed on 06/23 and 06/24- there is intraperitoneal fluid especially peripancreatic, distended gallbladder, one stone in gallbladder, cystic mass of tail of pancreas. Family is with the patient at bedside. BP is marginal. She has gotten 2L fluid boluses today. Review of Systems All other systems reviewed negative except as stated in [facility] - History History Provided By: Patient, Family Member, Medical Record - Medical History Medical History: Medical History (Last Reviewed 06/24/18 @ 16:47 by Jasmina Reyes MD) Bipolar 1 disorder GERD (gastroesophageal reflux disease) HTN (hypertension) High cholesterol - Tobacco History Second Hand Smoke Exposure: No Tobacco Use In Past 30 Days: No Smoking Status: Never smoker - Alcohol History How Often Do You Have a Drink Containing Alcohol: Monthly or less - Substance Use History Substance History: Past History - Substance Use Type Marijuana Status: Sustained Remission Route Used: Inhalation Reason for Use: Get High - Travel History Recent Travel in the [place] Within the Last 8 Weeks: No Recent Travel Out of the Country Within the Last 8 Weeks: No - Immunization History Tetanus Immunization: <5 Years Hx Influenza Vaccine This Season: Yes Medications and Allergies Active Medications: Active Medications Atorvastatin Calcium (Lipitor) 10 mg PO DAILY [facility] Last Admin: 06/25/18 08:52 Dose: 10 mg Clonazepam (Klonopin) 1 mg PO HS PRN PRN Reason: Sleep Enoxaparin Sodium (Lovenox Inj) 30 mg SQ Q24H [facility] Last Admin: 06/24/18 22:29 Dose: 30 mg Fluoxetine HCl (Prozac) 20 mg PO DAILY [facility] Last Admin: 06/25/18 08:52 Dose: 20 mg Hydromorphone HCl (Dilaudid Pf Inj) 1 mg IV.PUSH Q4H PRN PRN Reason: BREAKTHROUGH PAIN Potassium Chloride/Sodium Chloride (Ns + Kcl 20 Meq Inj) 1,000 mls @ 200 mls/ hr IV.CONT .Q5H [facility] Last Admin: 06/25/18 16:28 Dose: 200 mls/hr Piperacillin/Tazobactam/Dextrose (Zosyn 4.5 Gm Premix) 4.5 gm in 100 mls @ 200 mls/hr IV.SIG Q6H [facility] Last Infusion: 06/25/18 13:36 Dose: Infused Ketorolac Tromethamine (Toradol Inj) 15 mg IV.PUSH Q6H PRN PRN Reason: PAIN SCALE 4 TO 10 Lamotrigine (Lamictal) 100 mg PO DAILY [facility] Last Admin: 06/25/18 08:52 Dose: 100 mg Ondansetron HCl (Zofran Inj) 8 mg IV.PUSH Q6H PRN PRN Reason: NAUSEA OR VOMITING Last Admin: 06/24/18 13:11 Dose: 8 mg Pantoprazole Sodium (Protonix Inj) 40 mg IV.PUSH Q24H [facility] Last Admin: 06/24/18 17:46 Dose: Not Given Paroxetine HCl (Paxil) 10 mg PO DAILY [facility] Last Admin: 06/25/18 08:52 Dose: 10 mg Sodium Chloride (Ns Flush) 2 ml IV.FLUSH BID [facility] Last Admin: 06/25/18 08:52 Dose: Not Given Sodium Chloride (Ns Flush) 2 ml IV.FLUSH PRN PRN PRN Reason: FLUSH AFTER USING IV ACCESS Trazodone HCl (Desyrel) 50 mg PO HS PRN PRN Reason: INSOMNIA Last Admin: 06/24/18 00:01 Dose: 50 mg Allergies Allergy/AdvReac Type Severity Reaction Status Date / Time prochlorperazine Allergy Severe Tongue Verified 06/24/18 14:11 swelling Home Medications Medication Instructions Recorded Confirmed Type atorvastatin 10 mg PO DAILY 06/07/18 06/23/18 History clonazepam 1 mg PO HS PRN 06/07/18 06/23/18 History fluoxetine 20 mg PO DAILY 06/07/18 06/23/18 History lamotrigine 100 mg PO DAILY 06/07/18 06/23/18 History lisinopril 20 mg PO DAILY 06/07/18 06/23/18 History pantoprazole 40 mg PO DAILY 06/07/18 06/23/18 History tramadol 50 mg PO BID PRN 06/07/18 06/23/18 History trazodone 50 mg PO HS 06/07/18 06/23/18 History paroxetine HCl [Paxil] 10 mg PO DAILY 06/24/18 06/24/18 History Exam Vital signs: Vital Signs 06/24/18 19:10 06/24/18 23:14 06/25/18 00:24 Temperature 99.2 F 99.4 F Pulse Rate 96 H 88 89 Respiratory Rate 18 18 Blood Pressure 147/76 H 100/56 L Pulse Oximetry 98 93 L 06/25/18 03:49 06/25/18 07:59 06/25/18 08:00 Temperature 99.1 F 99.5 F Pulse Rate 88 88 85 Respiratory Rate 18 20 Blood Pressure 102/61 89/55 L Pulse Oximetry 94 L 95 06/25/18 13:17 06/25/18 14:21 06/25/18 16:00 Temperature 98.9 F 98.3 F Pulse Rate 80 81 Respiratory Rate 20 20 Blood Pressure 88/51 L 94/53 L 81/51 L Pulse Oximetry 94 L 93 L Intake & Output 06/24/18 06/25/18 06/25/18 18:59 06:59 18:59 Intake Total 700 / 700 2087 / 2088 2700 / 2700 Output Total 800 / 800 Balance -100 / -100 2087 / 2087 2700 / 2700 Weight 58 kg Intake: IV 700 / 700 2087 / 2087 2700 / 2700 NS + KCl 20 mEq Inj 1,000 ML @ 600 / 600 1888 / 1888 1000 / 1000 200 mls/hr IV.CONT .Q5H NICOLE Rx# :[id number] Zosyn 4.5 GM Premix 4.5 gm In 100 / 100 200 / 200 200 / 200 100 ml @ 200 mls/hr IV.SIG Q6H NICOLE Rx#:[id number] NS Inj 1,000 ML @ 1000 mls/hr 1000 / 1000 IV.SIG BOLUS NICOLE Rx#:[id number] NS Inj 500 ML @ 1000 mls/hr IV. 500 / 500 SIG BOLUS NICOLE Rx#:[id number] Oral 0 / 0 0 / 0 Output: Urine 800 / 800 Other: # Voids 1 5 1 Date of Last Bowel Movement 06/23/18 06/23/18 06/23/18 # Bowel Movements 0 0 Narrative: GENERAL: Awake and alert. No acute distress. Cooperative. HEAD: Normocephalic. Atraumatic. EYES: Pupils equal round and reactive to light bilaterally. No scleral icterus. ENT: Moist oral mucosa. NECK: Trachea midline. CHEST: Nonlabored breathing. No respiratory distress. CARDIOVASCULAR: Regular rate and rhythm. ABDOMEN: Mild distention. No guarding or rebound. Mild diffuse ttp. EXTREMITIES: No cyanosis or edema. SKIN: Warm, dry, nonjaundiced. Results - Labs 06/25/18 05:43 06/25/18 05:43 Laboratory Results - last 24 hr 06/24/18 06/24/18 06/25/18 19:30 19:30 05:43 WBC 11.8 H 10.5 RBC 4.30 3.71 L Hgb 12.8 11.0 L Hct 38.1 32.3 L MCV 88.7 87.2 MCH 29.7 29.8 MCHC 33.5 34.1 RDW 14.2 13.9 Plt Count 292 246 MPV 7.6 7.4 Neut % (Auto) 86.4 H 82.3 H Lymph % (Auto) 5.7 L 7.3 L [place] % (Auto) 7.4 9.5 H Eos % (Auto) 0.3 0.6 Baso % (Auto) 0.2 0.3 Neut # (Auto) 10.2 H 8.7 H Lymph # (Auto) 0.7 L 0.8 L [place] # (Auto) 0.9 1.0 H Eos # (Auto) 0.0 0.1 Baso # (Auto) 0.0 0.0 WBC Differential . . Differential Comment Auto diff final Auto diff final Sodium 136 Potassium 3.9 Chloride 104 Carbon Dioxide 27.3 Anion Gap 5 BUN 10 Creatinine 0.72 Random Glucose 84 Calcium 8.2 L Total Bilirubin 0.7 AST 17 ALT 9 L Alkaline Phosphatase 73 Total Protein 6.2 L D Albumin 3.2 L D Lipase 57440 H 06/25/18 05:43 WBC RBC Hgb Hct MCV MCH MCHC RDW Plt Count MPV Neut % (Auto) Lymph % (Auto) [place] % (Auto) Eos % (Auto) Baso % (Auto) Neut # (Auto) Lymph # (Auto) [place] # (Auto) Eos # (Auto) Baso # (Auto) WBC Differential Differential Comment Sodium 138 Potassium 4.2 Chloride 106 Carbon Dioxide 27.2 Anion Gap 5 BUN 8 Creatinine 0.69 Random Glucose 81 Calcium 8.1 L Total Bilirubin 0.8 AST 17 ALT 9 L Alkaline Phosphatase 62 Total Protein 5.3 L D Albumin 2.6 L D Lipase 6045 H - Imaging Imaging: ITS Impressions Abdomen/Pelvis CT 06/24/18 00:00 CONCLUSION: There is more fluid within the peritoneal cavity since the prior exam and the gallbladder appears more distended . Acute pancreatitis is of primary consideration with cystic areas in the tail of the pancreas which were evaluated on the patient's prior abdominal MRI from 06/2018 could be pseudocyst versus cystic neoplasm. CT scan - abdomen: report reviewed, image reviewed CT scan - pelvis: report reviewed, image reviewed Assessment and Plan - Assessment (1) Acute pancreatitis Code(s): K85.90 - Acute pancreatitis without necrosis or infection, unspecified Status: Acute - Plan Acute pancreatitis after EUS with FNA - supportive management. Likely routine acute pancreatitis although there is a possiblility of some sort of procedural related problem such as leak of pancreatic fluid from cyst. Case d/ w Dr. العراقي and Dr. Trejo. MRCP will be ordered to further evaluate pancreas structurally. Could consider aspiration of peritoneal fluid for further evaluation but this would pose a risk of infection and will hold off at this time. No plans for surgery. Will follow along.
[2018-06-25] MEDS: Ketorolac Inj 30 MG/ML (IVP) Vial IV.PUSH PRN (18:31)
[2018-06-25] MEDS: Enoxaparin Inj 30 MG/0.3 ML Syringe SQ SCH (22:37)
[2018-06-26] MEDS: Piperacil/Tazo 4.5 GM Premix 4.5 GM/100 ML BAG IV.SIG SCH ×4 (01:06→20:23)
[2018-06-26] MEDS: Ketorolac Inj 30 MG/ML (IVP) Vial IV.PUSH PRN ×2 (01:06→19:34)
--- NOTE | 2018-06-26 04:28 | XR ---
EXAM DATE: 06/26/2018 3:58 AM EST AGE/SEX: 67 years / Female INDICATIONS: Cough. CLINICAL DATA: This is the patient's initial encounter. Patient reports that signs and symptoms have been present for 1 day and indicates a pain score of 0/10. MEDICAL/SURGICAL HISTORY: Hypertension. Cholecystectomy. COMPARISON: No prior exams available for comparison. FINDINGS: Diffuse coarse interstitial prominence and streaky bibasilar parenchymal opacities of undetermined ch ronicity. Accounting for rotation, cardiac contours are satisfactory. CONCLUSION: Diffuse interstitial prominence and streaky basilar parenchymal opacities bilaterally. Electronically signed by: Dane Conway MD Board Certified Radiologist 06/26/2018 4:27 AM EST
[2018-06-26 07:18] LABS: Baso % (Auto) 0.3 % (0.0-2.0); Eos # (Auto) 0.1 th/mm3 (0.0-0.4); Eos % (Auto) 1.7 % (0.0-4.0); Hematocrit 27.8 % (35.0-46.0); Hemoglobin 9.4 gm/dL (11.6-15.3); Lymph # (Auto) 0.7 th/mm3 (1.0-4.8); Lymph % (Auto) 8.8 % (9.0-44.0); Mean Corpuscular HGB Conc 33.8 % (32.0-36.0); Mean Corpuscular Hemoglobin 30.2 pg (27.0-34.0); Mean Corpuscular Volume 89.6 fL (80.0-100.0); Mean Platelet Volume 7.5 fL (7.0-11.0); Mono # (Auto) 0.7 th/mm3 (0.0-0.9); Mono % (Auto) 8.8 % (0.0-8.0); Neut # (Auto) 6.5 th/mm3 (1.8-7.7); Neut % (Auto) 80.4 % (16.0-70.0); Platelet Count 207 th/mm3 (150-450); Red Blood Count 3.11 mil/mm3 (4.00-5.30); Red Cell Distribution Width 13.9 % (11.6-17.2)
[2018-06-26 07:40] LABS: Albumin 2.4 g/dL (3.4-5.0); Anion Gap 9 meq/L (5-15); Aspartate Aminotransferase 17 U/L (15-37); Blood Urea Nitrogen 12 mg/dL (7-18); Carbon Dioxide 22.5 meq/L (21.0-32.0); Chloride 109 meq/L (98-107); Glomerular Filtration Rate Greater Than 89 mL/min (>89); Glucose,Random 62 mg/dL (74-106); Lipase 902 U/L (73-393); Potassium 4.1 meq/L (3.5-5.1); Sodium 140 meq/L (136-145)
[2018-06-26 07:41] LABS: Alanine Aminotransferase 8 U/L (10-53)
[2018-06-26 07:44] LABS: Alkaline Phosphatase 60 U/L (45-117); Total Protein 5.3 g/dL (6.4-8.2)
[2018-06-26] MEDS: FLUoxetine 20 MG Capsule PO SCH ×2 (07:55→10:44)
[2018-06-26] MEDS: lamoTRIgine 100 MG Tablet PO SCH ×2 (07:56→10:43)
[2018-06-26] MEDS ORDERED: Gadobutrol PF 7.5 MMOL/7.5 ML Vial (for RAD) IV.SIG ONE (08:33)
--- NOTE | 2018-06-26 09:00 | MR ---
EXAM DATE: 06/26/2018 8:50 AM EST AGE/SEX: 67 years / Female INDICATIONS: Abdominal pain. CLINICAL DATA: This is the patient's initial encounter. Patient reports that signs and symptoms have been present for 1 day and indicates a pain score of 5/10. MEDICAL/SURGICAL HISTORY: Hypertension. Hypercholesterolemia. None. COMPARISON: [facility], MR ABDOMEN W/ AND W/O CONTRAST, 06/15/2018. [facility], CT ABDOMEN & PELVIS W CONTRAST, 06/24/2018. . TECHNIQUE: Multisequence, multiplanar MRI examination was performed without contrast and after the in travenous administration of 6 ml Gadavist (gadobutrol) contrast as a single exam dose. FINDINGS: Liver: The liver is homogeneous and normal in signal intensity with several small T2 bright lesions. . Intrahepatic Bile Ducts: There is no intrahepatic biliary ductal dilatation. Common Bile Duct: The common bile duct is normal in caliber measuring 3 to 4 mm in size. No filling defects or obstructing lesions are identified. Gallbladder: There is marked distention of the gallbladder which does contain a small gallstone in t he distal body without gallbladder wall thickening. Pancreas: Edematous pancreas with prominent cystic change again seen within the tail.. Pancreatic in flammatory changes and fluid seen. The pancreatic duct is normal in caliber with no filling defects, or obstructing lesions identified. Other: Small bilateral pleural effusions. Abdominal ascites CONCLUSION: 1. Edematous pancreas with prominent cystic change again seen in the tail with peripancreatic fluid collections suggesting pancreatitis in the right clinical setting. 2. Small bilateral pleural effusions and abdominal ascites. 3. Marked distention of the gallbladder and cholelithiasis. 4. No intra or extrahepatic biliary ductal dilatation. Electronically signed by: Brady Clark MD Board Certified Radiologist 06/26/2018 8:58 AM EST
--- NOTE | 2018-06-26 09:54 | P.PNIM ---
Subjective Interval history: Patient report feeling much better today Denies abd pain at this time Lipase down to 902 Physical Exam Vital signs: Last Vital Signs Temp 97.9 F 06/26/18 08:09 Pulse 83 06/26/18 08:09 Resp 16 06/26/18 08:09 BP 138/65 06/26/18 08:09 Pulse Ox 93 L 06/26/18 08:09 Narrative: GENERAL: This is a well-nourished, well-developed patient, in no apparent distress. CARDIOVASCULAR: Regular rate and rhythm RESPIRATORY: Clear to auscultation. Breath sounds equal bilaterally. GASTROINTESTINAL: Abdomen soft, mild tenderness right upper , nondistended. Normal active bowel sounds MUSCULOSKELETAL: Extremities without clubbing, cyanosis, or edema. NEURO: Alert & Oriented x4 to person, place, time, situation. Moves all ext x4 Results Labs CBC & Chem 7: 06/27/18 06:36 06/27/18 06:36 Assessment and Plan Assessment (1) Acute pancreatitis: Code(s): K85.90 - Acute pancreatitis without necrosis or infection, unspecified Status: Acute Plan 1) Pancreatitis, s/p EUS - Pt is a 67 y/o F who underwent EUS with FNA of cystic mass of the pancreatic tail 06/23/[address] Jae Nunez. - Pt developed worsening abdominal pain at home following the procedure. - On admission pt's lipase was elevated at 22K (06/23) and has improved to 6,045 (06/25) -> 902 (06/26) - CT A/P (06/24) - fluid within the peritoneal cavity since the prior exam and the gallbladder appears more distended . - Acute pancreatitis is of primary consideration with cystic areas in the tail of the pancreas which were evaluated on the patient's prior abdominal MRI from 06/2018 could be pseudocyst versus cystic neoplasm - abdominal pain improving (06/26) - Case d/w Dr. Trejo (06/25/18), appreciate assistance - Case d/w Dr. Lake (06/25/18), appreciate assistance - DC IVF start clear liquid diet - Continue pain mgmt was BP readings will allow Cholangiopancreatography MRI 06/26/18 1. Edematous pancreas with prominent cystic change again seen in the tail with peripancreatic fluid collections suggesting pancreatitis in the right clinical setting. 2. Small bilateral pleural effusions and abdominal ascites. 3. Marked distention of the gallbladder and cholelithiasis. 4. No intra or extrahepatic biliary ductal dilatation. - repeat CBC, CMP and lipase in AM 2) Hypotensive - improving - likely d/t pancreatitis and pain medication - No fever, no leukocytosis - DC IVFs - parameters on pain medications. 3) Anemia hgb 11 -> 9.4 likely dilutional recheck H&H ordered Attending Attestation The exam, history, and the medical decision-making described in the above note were completed with the assistance of the mid-level provider. I reviewed and agree with the findings presented. I attest that I had a [id number] encounter with the patient on the same day, and personally performed and documented my assessment and findings in the medical record. Patient examined. Assessment and plan formulated with Viki Echeverria PA-C. I agree with the above. Pain much improved today. start clears. Anticipate d/c to home in 1-2 days. Progress Note: Quality VTE Deep Vein Thrombosis/Pulmonary Embolism Present on Admission: No _ (1) Acute pancreatitis Qualifiers: Acute pancreatitis complication: Pancreatitis type:
[2018-06-26] MEDS ORDERED: HYDROmorphone PF Inj 1 MG/ML Ampul IV.PUSH PRN (09:55)
[2018-06-26] MEDS ORDERED: Sincalide Inj 5 MCG Vial IV.PUSH ONE (11:44)
--- NOTE | 2018-06-26 13:19 | NM ---
EXAM DATE: 06/26/2018 12:42 PM EST AGE/SEX: 67 years / Female INDICATIONS: Abdominal pain with nausea and vomiting. CLINICAL DATA: This is the patient's initial encounter. Patient reports that signs and symptoms have been present for 2 days and indicates a pain score of 7/10. MEDICAL/SURGICAL HISTORY: Gastroesophageal reflux disease. Hypertension. None. COMPARISON: No prior exams available for comparison. No external comparison. DOSE: 4.2 mCi Tc-99m mebrofenin i.v. Medication: 1.15 mcg Cholecystokinin IV No symptomatic response Cholecystokinin was administered by slow infusion over 8 minutes beginning at 75 min. min utes. TECHNIQUE: Following the intravenous administration of radiotracer, dynamic sequential images were pe rformed with continuous acquisition. Time-activity curves were generated. FINDINGS: Hepatic Kinetics: There is prompt uptake of radiotracer in the liver. No focal defects are seen. Ther e is normal rate of washout from the hepatic parenchyma. Biliary Clearance: Activity is first seen in the extrahepatic biliary system at 20 minutes. There is normal excretion into the small bowel. Gallbladder: Activity is first seen in the gallbladder at 20 minutes. Post-CCK: After CCK administration, there is poor emptying of the gallbladder with a 10% ejection fra ction. Common bile duct kinetics are normal and there is no evidence of biliary obstruction. No symp tomatic response after cholecystokinin infusion. Biliary-Enteric Reflux: None observed. CONCLUSION: 1. No cystic duct obstruction or biliary ductal obstruction. 2. Very little response to CCK injection suggesting biliary dyskinesia. Electronically signed by: [place] Rosales MD Board Certified Radiologist 06/26/2018 1:18 PM EST
--- NOTE | 2018-06-26 14:23 | P.PNGS ---
Subjective Interval history: No pain since 3 am. Feels much better today. MRCP showed pancreatitis and the pancreatic cysts. HIDA shows no obstruction- 10% EF. Physical Exam Vital signs: Vital Signs 06/25/18 14:21 06/25/18 16:00 06/25/18 16:06 Temperature 98.3 F Pulse Rate 81 74 Respiratory Rate 20 Blood Pressure 94/53 L 81/51 L Pulse Oximetry 93 L 06/25/18 20:58 06/25/18 21:03 06/25/18 23:56 Temperature 98.8 F Pulse Rate 83 85 83 Respiratory Rate 20 Blood Pressure 98/54 L Pulse Oximetry 98 06/26/18 01:01 06/26/18 03:42 06/26/18 04:05 Temperature 98.8 F 99.7 F H Pulse Rate 83 80 75 Respiratory Rate 17 18 Blood Pressure 116/56 L 97/52 L Pulse Oximetry 94 L 93 L 06/26/18 07:55 06/26/18 08:09 06/26/18 13:25 Temperature 97.9 F 98.0 F Pulse Rate 86 83 94 H Respiratory Rate 16 18 Blood Pressure 138/65 132/63 Pulse Oximetry 93 L 93 L Intake & Output 06/25/18 06/26/18 06/26/18 18:59 06:59 18:59 Intake Total 2700 / 2700 3100 / 3100 100 / 100 Balance 2700 / 2700 3100 / 3100 100 / 100 Intake: IV 2700 / 2700 3100 / 3100 100 / 100 NS + KCl 20 mEq Inj 1,000 ML @ 1000 / 1000 3000 / 3000 200 mls/hr IV.CONT .Q5H NICOLE Rx# :[id number] Zosyn 4.5 GM Premix 4.5 gm In 200 / 200 100 / 100 100 / 100 100 ml @ 200 mls/hr IV.SIG Q6H NIOCLE Rx#:[id number] NS Inj 1,000 ML @ 1000 mls/hr 1000 / 1000 IV.SIG BOLUS NICOLE Rx#:[id number] NS Inj 500 ML @ 1000 mls/hr IV. 500 / 500 SIG BOLUS NICOLE Rx#:[id number] Other: # Voids 1 Date of Last Bowel Movement 06/23/18 06/25/18 06/26/18 Narrative: NAD Abd: soft, min ttp Results - Labs 06/26/18 06:42 06/26/18 06:42 Laboratory Results - last 24 hr 06/26/18 06/26/18 06:42 06:42 WBC 8.0 RBC 3.11 L Hgb 9.4 L Hct 27.8 L MCV 89.6 MCH 30.2 MCHC 33.8 RDW 13.9 Plt Count 207 MPV 7.5 Neut % (Auto) 80.4 H Lymph % (Auto) 8.8 L [place] % (Auto) 8.8 H Eos % (Auto) 1.7 Baso % (Auto) 0.3 Neut # (Auto) 6.5 Lymph # (Auto) 0.7 L [place] # (Auto) 0.7 Eos # (Auto) 0.1 Baso # (Auto) 0.0 WBC Differential . Differential Comment Auto diff final Sodium 140 Potassium 4.1 Chloride 109 H Carbon Dioxide 22.5 Anion Gap 9 BUN 12 Creatinine 0.61 Estimated GFR Greater than 89 Random Glucose 62 L Calcium 8.0 L Total Bilirubin 0.8 AST 17 ALT 8 L Alkaline Phosphatase 60 Total Protein 5.3 L Albumin 2.4 L Lipase 902 H - Imaging Imaging: ITS Impressions Abdomen/Pelvis CT 06/24/18 00:00 CONCLUSION: There is more fluid within the peritoneal cavity since the prior exam and the gallbladder appears more distended . Acute pancreatitis is of primary consideration with cystic areas in the tail of the pancreas which were evaluated on the patient's prior abdominal MRI from 06/2018 could be pseudocyst versus cystic neoplasm. Bile Acid Absorption NM 06/26/18 00:00 CONCLUSION: 1. No cystic duct obstruction or biliary ductal obstruction. 2. Very little response to CCK injection suggesting biliary dyskinesia. Cholangiopancreatography MRI 06/26/18 00:00 CONCLUSION: 1. Edematous pancreas with prominent cystic change again seen in the tail with peripancreatic fluid collections suggesting pancreatitis in the right clinical setting. 2. Small bilateral pleural effusions and abdominal ascites. 3. Marked distention of the gallbladder and cholelithiasis. 4. No intra or extrahepatic biliary ductal dilatation. Chest X-Ray 06/26/18 06:00 CONCLUSION: Diffuse interstitial prominence and streaky basilar parenchymal opacities bilaterally. Assessment and Plan - Assessment (1) Acute pancreatitis Code(s): K85.90 - Acute pancreatitis without necrosis or infection, unspecified Status: Acute - Plan Acute pancreatitis after EUS with FNA - improving. No surprising findings on HIDA or MRCP. Gallbladder EF is low but that may be to overall ileus right now. She has not had symptoms in the past such as RUQ or epigastric pain. I can see her as outpatient as needed for gallbladder issues but at this time I would not recommend pursuing cholecystectomy. F/u with GI regarding pancreatic cysts. I will s/o and be available as needed.
--- NOTE | 2018-06-26 14:57 | P.PNGI ---
Subjective Interval history: Patient is sitting up in a chair over by the wind and feeling so much better. Notes no more acute abdominal pain since this a.m. Does have some mild abdominal discomfort to light palpation but no nausea no vomiting Patient is now status post HIDA scan and MRCP today <Radha Dallas - Last Filed: 06/26/18 14:57> Physical Exam Vital signs: Vital Signs 06/25/18 16:00 06/25/18 16:06 06/25/18 20:58 Temperature 98.3 F 98.8 F Pulse Rate 81 74 83 Respiratory Rate 20 20 Blood Pressure 81/51 L 98/54 L Pulse Oximetry 93 L 98 06/25/18 21:03 06/25/18 23:56 06/26/18 01:01 Temperature 98.8 F Pulse Rate 85 83 83 Respiratory Rate 17 Blood Pressure 116/56 L Pulse Oximetry 94 L 06/26/18 03:42 06/26/18 04:05 06/26/18 07:55 Temperature 99.7 F H Pulse Rate 80 75 86 Respiratory Rate 18 Blood Pressure 97/52 L Pulse Oximetry 93 L 06/26/18 08:09 06/26/18 13:25 Temperature 97.9 F 98.0 F Pulse Rate 83 94 H Respiratory Rate 16 18 Blood Pressure 138/65 132/63 Pulse Oximetry 93 L 93 L Intake & Output 06/25/18 06/26/18 06/26/18 18:59 06:59 18:59 Intake Total 2700 / 2700 3100 / 3100 200 / 200 Balance 2700 / 2700 3100 / 3100 200 / 200 Intake: IV 2700 / 2700 3100 / 3100 200 / 200 NS + KCl 20 mEq Inj 1,000 ML @ 1000 / 1000 3000 / 3000 200 mls/hr IV.CONT .Q5H NICOLE Rx# :[id number] Zosyn 4.5 GM Premix 4.5 gm In 200 / 200 100 / 100 200 / 200 100 ml @ 200 mls/hr IV.SIG Q6H NICOLE Rx#:[id number] NS Inj 1,000 ML @ 1000 mls/hr 1000 / 1000 IV.SIG BOLUS NICOLE Rx#:[id number] NS Inj 500 ML @ 1000 mls/hr IV. 500 / 500 SIG BOLUS NICOLE Rx#:[id number] Other: # Voids 1 Date of Last Bowel Movement 06/23/18 06/25/18 06/26/18 - Constitutional no acute distress, thin, cooperative - Routine HEENT Exam Head: Present: normocephalic ENT: Present: mucous membranes moist - Routine Neck Exam Present: supple - Routine Cardiovascular Exam Present: S1, S2 - Routine Abdominal Exam Present: soft, normoactive bowel sounds, tenderness (Mild to light palpation), distended (Mild) <Radha Dallas - Last Filed: 06/26/18 14:57> Vital signs: Vital Signs 06/25/18 16:00 06/25/18 16:06 06/25/18 20:58 Temperature 98.3 F 98.8 F Pulse Rate 81 74 83 Respiratory Rate 20 20 Blood Pressure 81/51 L 98/54 L Pulse Oximetry 93 L 98 06/25/18 21:03 06/25/18 23:56 06/26/18 01:01 Temperature 98.8 F Pulse Rate 85 83 83 Respiratory Rate 17 Blood Pressure 116/56 L Pulse Oximetry 94 L 06/26/18 03:42 06/26/18 04:05 06/26/18 07:55 Temperature 99.7 F H Pulse Rate 80 75 86 Respiratory Rate 18 Blood Pressure 97/52 L Pulse Oximetry 93 L 06/26/18 08:09 06/26/18 13:25 Temperature 97.9 F 98.0 F Pulse Rate 83 94 H Respiratory Rate 16 18 Blood Pressure 138/65 132/63 Pulse Oximetry 93 L 93 L Intake & Output 06/25/18 06/26/18 06/26/18 18:59 06:59 18:59 Intake Total 2700 / 2700 3100 / 3100 200 / 200 Balance 2700 / 2700 3100 / 3100 200 / 200 Intake: IV 2700 / 2700 3100 / 3100 200 / 200 NS + KCl 20 mEq Inj 1,000 ML @ 1000 / 1000 3000 / 3000 200 mls/hr IV.CONT .Q5H NICOLE Rx# :[id number] Zosyn 4.5 GM Premix 4.5 gm In 200 / 200 100 / 100 200 / 200 100 ml @ 200 mls/hr IV.SIG Q6H NICOLE Rx#:[id number] NS Inj 1,000 ML @ 1000 mls/hr 1000 / 1000 IV.SIG BOLUS NICOLE Rx#:[id number] NS Inj 500 ML @ 1000 mls/hr IV. 500 / 500 SIG BOLUS NICOLE Rx#:[id number] Other: # Voids 1 Date of Last Bowel Movement 06/23/18 06/25/18 06/26/18 <Zach Trejo - Last Filed: 06/26/18 15:50> Results - Labs CBC & Chem 7: 06/26/18 06:42 06/26/18 06:42 Laboratory Results - last 24 hr 06/26/18 06/26/18 06:42 06:42 WBC 8.0 RBC 3.11 L Hgb 9.4 L Hct 27.8 L MCV 89.6 MCH 30.2 MCHC 33.8 RDW 13.9 Plt Count 207 MPV 7.5 Neut % (Auto) 80.4 H Lymph % (Auto) 8.8 L [place] % (Auto) 8.8 H Eos % (Auto) 1.7 Baso % (Auto) 0.3 Neut # (Auto) 6.5 Lymph # (Auto) 0.7 L [place] # (Auto) 0.7 Eos # (Auto) 0.1 Baso # (Auto) 0.0 WBC Differential . Differential Comment Auto diff final Sodium 140 Potassium 4.1 Chloride 109 H Carbon Dioxide 22.5 Anion Gap 9 BUN 12 Creatinine 0.61 Estimated GFR Greater than 89 Random Glucose 62 L Calcium 8.0 L Total Bilirubin 0.8 AST 17 ALT 8 L Alkaline Phosphatase 60 Total Protein 5.3 L Albumin 2.4 L Lipase 902 H - Imaging Impressions Bile Acid Absorption NM 06/26/18 00:00 CONCLUSION: 1. No cystic duct obstruction or biliary ductal obstruction. 2. Very little response to CCK injection suggesting biliary dyskinesia. Cholangiopancreatography MRI 06/26/18 00:00 CONCLUSION: 1. Edematous pancreas with prominent cystic change again seen in the tail with peripancreatic fluid collections suggesting pancreatitis in the right clinical setting. 2. Small bilateral pleural effusions and abdominal ascites. 3. Marked distention of the gallbladder and cholelithiasis. 4. No intra or extrahepatic biliary ductal dilatation. Chest X-Ray 06/26/18 06:00 CONCLUSION: Diffuse interstitial prominence and streaky basilar parenchymal opacities bilaterally. <Radha Dallas - Last Filed: 06/26/18 14:57> - Labs CBC & Chem 7: 06/26/18 06:42 06/26/18 06:42 Laboratory Results - last 24 hr 06/26/18 06/26/18 06:42 06:42 WBC 8.0 RBC 3.11 L Hgb 9.4 L Hct 27.8 L MCV 89.6 MCH 30.2 MCHC 33.8 RDW 13.9 Plt Count 207 MPV 7.5 Neut % (Auto) 80.4 H Lymph % (Auto) 8.8 L [place] % (Auto) 8.8 H Eos % (Auto) 1.7 Baso % (Auto) 0.3 Neut # (Auto) 6.5 Lymph # (Auto) 0.7 L [place] # (Auto) 0.7 Eos # (Auto) 0.1 Baso # (Auto) 0.0 WBC Differential . Differential Comment Auto diff final Sodium 140 Potassium 4.1 Chloride 109 H Carbon Dioxide 22.5 Anion Gap 9 BUN 12 Creatinine 0.61 Estimated GFR Greater than 89 Random Glucose 62 L Calcium 8.0 L Total Bilirubin 0.8 AST 17 ALT 8 L Alkaline Phosphatase 60 Total Protein 5.3 L Albumin 2.4 L Lipase 902 H - Imaging Impressions Bile Acid Absorption NM 06/26/18 00:00 CONCLUSION: 1. No cystic duct obstruction or biliary ductal obstruction. 2. Very little response to CCK injection suggesting biliary dyskinesia. Cholangiopancreatography MRI 06/26/18 00:00 CONCLUSION: 1. Edematous pancreas with prominent cystic change again seen in the tail with peripancreatic fluid collections suggesting pancreatitis in the right clinical setting. 2. Small bilateral pleural effusions and abdominal ascites. 3. Marked distention of the gallbladder and cholelithiasis. 4. No intra or extrahepatic biliary ductal dilatation. Chest X-Ray 06/26/18 06:00 CONCLUSION: Diffuse interstitial prominence and streaky basilar parenchymal opacities bilaterally. <Zach Trejo - Last Filed: 06/26/18 15:50> Assessment and Plan - Plan Acute pancreatitis, MRCP today shows pancreatic cyst but no common bile duct dilatation HIDA scan shows biliary dyskinesia with EF of 10 and gallbladder wall thickening Patient notes first episode of pancreatitis, status post EUS with biopsy 3-4 days ago. Labs reviewed which show current hemoglobin 9.4 WBC count 8, lipase decreased to 902, Anemia could be acute on chronic disease but no obvious GI bleed for now. Appreciate general surgery input, no plans for cholecystectomy at this point. Discussed with patient the need for follow-up in the GI office post this hospital stay. 2-4 weeks Plan Diet as tolerated but encouraged reflux precautions and decreased spicy fatty foods Monitor labs with hemoglobin and lipase level which is currently trending down Increase motility and mobility in room, encouraged to be up in chair Antibiotics and pain management per attending Transition Protonix to p.o. dose daily Supportive Patient was seen per myself and Dr. 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 Surgery on case. Pancreatitis improving. Liquid diet. <Zach Trejo - Last Filed: 06/26/18 15:50>
[2018-06-26 15:54] LABS: Hematocrit 26.9 % (35.0-46.0); Hemoglobin 9.4 gm/dL (11.6-15.3)
[2018-06-26] MEDS: Pantoprazole Inj 40 MG Vial IV.PUSH SCH (19:34)
[2018-06-26] MEDS ORDERED: Acetaminophen 325 MG Tablet PO PRN (20:04)
[2018-06-26] MEDS: Enoxaparin Inj 30 MG/0.3 ML Syringe SQ SCH (22:36)
[2018-06-27] MEDS: Piperacil/Tazo 4.5 GM Premix 4.5 GM/100 ML BAG IV.SIG SCH ×2 (01:34→08:47)
[2018-06-27 07:18] LABS: Baso % (Auto) 0.3 % (0.0-2.0); Eos # (Auto) 0.2 th/mm3 (0.0-0.4); Eos % (Auto) 2.3 % (0.0-4.0); Hematocrit 26.4 % (35.0-46.0); Hemoglobin 9.2 gm/dL (11.6-15.3); Lymph # (Auto) 0.7 th/mm3 (1.0-4.8); Lymph % (Auto) 8.6 % (9.0-44.0); Mean Corpuscular HGB Conc 34.8 % (32.0-36.0); Mean Corpuscular Hemoglobin 30.2 pg (27.0-34.0); Mean Platelet Volume 7.6 fL (7.0-11.0); Mono # (Auto) 0.8 th/mm3 (0.0-0.9); Mono % (Auto) 9.7 % (0.0-8.0); Neut # (Auto) 6.2 th/mm3 (1.8-7.7); Neut % (Auto) 79.1 % (16.0-70.0); Platelet Count 238 th/mm3 (150-450); Red Blood Count 3.03 mil/mm3 (4.00-5.30); Red Cell Distribution Width 13.5 % (11.6-17.2); White Blood Count 7.8 th/mm3 (4.0-11.0)
[2018-06-27 07:37] LABS: Alanine Aminotransferase 13 U/L (10-53); Albumin 2.4 g/dL (3.4-5.0); Anion Gap 9 meq/L (5-15); Aspartate Aminotransferase 35 U/L (15-37); Calcium 8.2 mg/dL (8.5-10.1); Carbon Dioxide 24.4 meq/L (21.0-32.0); Chloride 104 meq/L (98-107); Glomerular Filtration Rate Greater Than 89 mL/min (>89); Glucose,Random 100 mg/dL (74-106); Lipase 692 U/L (73-393); Magnesium 1.8 mg/dL (1.5-2.5); Potassium 3.3 meq/L (3.5-5.1); Sodium 137 meq/L (136-145)
[2018-06-27 07:42] LABS: Alkaline Phosphatase 98 U/L (45-117); Blood Urea Nitrogen 8 mg/dL (7-18); Total Protein 5.7 g/dL (6.4-8.2)
[2018-06-27] MEDS: FLUoxetine 20 MG Capsule PO SCH (08:46)
[2018-06-27] MEDS: lamoTRIgine 100 MG Tablet PO SCH (08:47)
--- NOTE | 2018-06-27 10:19 | P.PNIM ---
Subjective Interval history: pt missed her klonopin last night. asking for it now. alot of diarrhea and had fever last night no pain with liquid diet Physical Exam Vital signs: Last Vital Signs Temp 98.3 F 06/27/18 08:00 Pulse 89 06/27/18 08:00 Resp 18 06/27/18 08:00 BP 165/88 H 06/27/18 08:00 Pulse Ox 98 06/27/18 08:00 Narrative: GENERAL: This is a well-nourished, well-developed patient, in no apparent distress. CARDIOVASCULAR: Regular rate and rhythm RESPIRATORY: Clear to auscultation. Breath sounds equal bilaterally. GASTROINTESTINAL: Abdomen soft, mild tenderness right upper , nondistended. Normal active bowel sounds MUSCULOSKELETAL: Extremities without clubbing, cyanosis, or edema. NEURO: Alert & Oriented x4 to person, place, time, situation. Moves all ext x4 Results Labs CBC & Chem 7: 06/27/18 06:36 06/27/18 06:36 Assessment and Plan Plan 1) Pancreatitis, s/p EUS - Pt is a 67 y/o F who underwent EUS with FNA of cystic mass of the pancreatic tail 06/23/[address] Jae Nunez. - Pt developed worsening abdominal pain at home following the procedure. - On admission pt's lipase was elevated at 22K (06/23) and has improved to 6,045 (06/25) -> 902 (06/26) - CT A/P (06/24) - fluid within the peritoneal cavity since the prior exam and the gallbladder appears more distended . - Acute pancreatitis is of primary consideration with cystic areas in the tail of the pancreas which were evaluated on the patient's prior abdominal MRI from 06/2018 could be pseudocyst versus cystic neoplasm - abdominal pain improving (06/26) - Case d/w Dr. Trejo (06/25/18), appreciate assistance - Case d/w Dr. Lake (06/25/18), appreciate assistance - DC IVF start clear liquid diet - Continue pain mgmt was BP readings will allow Cholangiopancreatography MRI 06/26/18 1. Edematous pancreas with prominent cystic change again seen in the tail with peripancreatic fluid collections suggesting pancreatitis in the right clinical setting. 2. Small bilateral pleural effusions and abdominal ascites. 3. Marked distention of the gallbladder and cholelithiasis. 4. No intra or extrahepatic biliary ductal dilatation. - pt denies pain with liquid diet alot of diarrhea. fever last night. was on zosyn now stopped check c.diff . 2) Hypotensive - improving - likely d/t pancreatitis and pain medication - No fever, no leukocytosis - DC IVFs - parameters on pain medications. 3) Anemia hgb 11 -> 9.4 likely dilutional recheck H&H ordered Progress Note: Quality VTE Deep Vein Thrombosis/Pulmonary Embolism Present on Admission: No
[2018-06-27] MEDS ORDERED: clonazePAM 1 MG Tablet PO ONE (10:30)
--- NOTE | 2018-06-27 12:46 | P.PNGI ---
Subjective Interval history: Patient sitting up at bedside chair Family present Patient denies abdominal pain and states she feels much better Denies nausea or vomiting Physical Exam Vital signs: Vital Signs 06/26/18 13:25 06/26/18 15:46 06/26/18 16:49 Temperature 98.0 F 98.8 F Pulse Rate 94 H 90 88 Respiratory Rate 18 16 Blood Pressure 132/63 113/61 Pulse Oximetry 93 L 97 06/26/18 19:20 06/26/18 20:00 06/27/18 00:00 Temperature 101.9 F H Pulse Rate 90 90 73 Respiratory Rate 20 Blood Pressure 128/71 Pulse Oximetry 92 L 06/27/18 00:37 06/27/18 04:00 06/27/18 04:07 Temperature 98.9 F 99.2 F Pulse Rate 74 80 87 Respiratory Rate 17 18 Blood Pressure 119/62 121/62 Pulse Oximetry 92 L 94 L 06/27/18 08:00 Temperature 98.3 F Pulse Rate 89 Respiratory Rate 18 Blood Pressure 165/88 H Pulse Oximetry 98 Intake & Output 06/26/18 06/27/18 06/27/18 18:59 06:59 18:59 Intake Total 200 / 200 1200 / 1200 100 / 100 Balance 200 / 200 1200 / 1200 100 / 100 Weight 63 kg Intake: IV 200 / 200 1200 / 1200 100 / 100 NS + KCl 20 mEq Inj 1,000 ML @ 1000 / 1000 200 mls/hr IV.CONT .Q5H NICOLE Rx# :[id number] Zosyn 4.5 GM Premix 4.5 gm In 200 / 200 200 / 200 100 / 100 100 ml @ 200 mls/hr IV.SIG Q6H NICOLE Rx#:[id number] Oral 0 / 0 Other: # Voids 3 Date of Last Bowel Movement 06/26/18 06/26/18 06/27/18 # Bowel Movements 0 - Constitutional no acute distress, cooperative - Routine HEENT Exam Head: Present: normocephalic ENT: Present: mucous membranes moist - Routine Respiratory Exam Present: CTA bilaterally - Routine Cardiovascular Exam Present: RRR - Routine Abdominal Exam Present: soft, normoactive bowel sounds. Absent: tenderness, distended - Routine Extremities Exam Absent: edema - Routine Skin Exam Present: dry - Routine Neurological Exam Present: alert, oriented X3 Results - Labs CBC & Chem 7: 06/27/18 06:36 02/18/19 06:36 Laboratory Results - last 24 hr 06/26/18 06/27/18 06/27/18 15:37 06:36 06:36 WBC 7.8 RBC 3.03 L Hgb 9.4 L 9.2 L Hct 26.9 L 26.4 L MCV 87.0 MCH 30.2 MCHC 34.8 RDW 13.5 Plt Count 238 MPV 7.6 Neut % (Auto) 79.1 H Lymph % (Auto) 8.6 L [place] % (Auto) 9.7 H Eos % (Auto) 2.3 Baso % (Auto) 0.3 Neut # (Auto) 6.2 Lymph # (Auto) 0.7 L [place] # (Auto) 0.8 Eos # (Auto) 0.2 Baso # (Auto) 0.0 WBC Differential . Differential Comment Auto diff final Sodium 137 Potassium 3.3 L D Chloride 104 Carbon Dioxide 24.4 Anion Gap 9 BUN 8 Creatinine 0.63 Estimated GFR Greater than 89 Random Glucose 100 Calcium 8.2 L Magnesium 1.8 Total Bilirubin 0.6 AST 35 ALT 13 Alkaline Phosphatase 98 Total Protein 5.7 L Albumin 2.4 L Lipase 692 H Microbiology 06/26/18 21:00 Blood - Peripheral Aerobic Blood Culture - Preliminary No growth in 1 day 06/26/18 21:00 Blood - Peripheral Anaerobic Blood Culture - Preliminary No growth in 1 day 06/26/18 20:45 Blood - Peripheral Aerobic Blood Culture - Preliminary No growth in 1 day 06/26/18 20:45 Blood - Peripheral Anaerobic Blood Culture - Preliminary No growth in 1 day - Imaging Impressions Bile Acid Absorption NM 06/26/18 00:00 CONCLUSION: 1. No cystic duct obstruction or biliary ductal obstruction. 2. Very little response to CCK injection suggesting biliary dyskinesia. Assessment and Plan - Plan Acute pancreatitis, MRCP today shows pancreatic cyst but no common bile duct dilatation HIDA scan shows biliary dyskinesia with EF of 10 and gallbladder wall thickening Patient notes first episode of pancreatitis, status post EUS with biopsy 3-4 days ago. Labs reviewed which show current hemoglobin 9.4 WBC count 8, lipase decreased to 902, Anemia could be acute on chronic disease but no obvious GI bleed for now. Appreciate general surgery input, no plans for cholecystectomy at this point. Discussed with patient the need for follow-up in the GI office post this hospital stay. 2-4 weeks 06/27/2018 Acute pancreatitis Biliary dyskinesia-no immediate plans for cholecystectomy as per general surgery Patient reports dark stools x1 episode this a.m. = WBC 7.8 hemoglobin 9.2 hematocrit 26.4--we will follow closely Lipase 692-much improved Patient denies abdominal discomfort nausea or vomiting Endorses one episode of loose stool this a.m., afebrile Plan Regular bland diet Lipase level in a.m. Monitor hemoglobin and hematocrit Monitor for active for obvious bleeding-melena stools Pantoprazole 40 mg daily Agree with C. difficile testing Stool studies Antiemetics and analgesics as per attending Supportive care Further recommendations to follow This patient has been seen by myself and Dr. Escamilla and this note is written on his behalf - Attending Attestation Dr. Escamilla
[2018-06-27] MEDS: Pantoprazole Inj 40 MG Vial IV.PUSH SCH (17:20)
[2018-06-27] MEDS ORDERED: Loperamide 2 MG Capsule PO PRN (18:00)
[2018-06-27] MEDS: traZODone 50 MG Tablet PO PRN (21:49)
[2018-06-27] MEDS: Enoxaparin Inj 30 MG/0.3 ML Syringe SQ SCH (22:00)
[2018-06-28 07:18] LABS: Alanine Aminotransferase 12 U/L (10-53); Albumin 2.4 g/dL (3.4-5.0); Anion Gap 6 meq/L (5-15); Aspartate Aminotransferase 32 U/L (15-37); Blood Urea Nitrogen 4 mg/dL (7-18); Calcium 8.3 mg/dL (8.5-10.1); Carbon Dioxide 29.5 meq/L (21.0-32.0); Chloride 107 meq/L (98-107); Glomerular Filtration Rate Greater Than 89 mL/min (>89); Glucose,Random 104 mg/dL (74-106); Lipase 464 U/L (73-393); Potassium 3.6 meq/L (3.5-5.1); Sodium 142 meq/L (136-145)
[2018-06-28 07:20] LABS: Alkaline Phosphatase 104 U/L (45-117); Total Protein 5.6 g/dL (6.4-8.2)
[2018-06-28 08:38] VITALS: BP 118/66; RESP 20; TEMP 99.9; O2SAT 92
[2018-06-28] MEDS: lamoTRIgine 100 MG Tablet PO SCH (08:41)
[2018-06-28] MEDS: FLUoxetine 20 MG Capsule PO SCH (08:41)
[2018-06-28 10:10] VITALS: PULSE 90
--- NOTE | 2018-06-28 10:27 | P.DS ---
DS: Providers Date of admission: 06/24/18 13:11 Primary care physician: UNKNOWN Consults: 06/23/18 21:51 Consult to Gastroenterology Routine Consulting Provider: Alivia Rushing Reason for Consultation: Acute pancreatitis Notified:: Service Spoke with:: avinash Date Notified:: 06/23/18 Time Notified:: 23:20 Ordering Provider: SHAMA 06/25/18 12:53 Consult to General Surgery Routine Consulting Provider: Dennis Lake Reason for Consultation: pancreatitis, worsening abd pain. Dr. العراقي discussed with Dr. Lake Notified:: Service Spoke with:: TATUM Date Notified:: 06/25/18 Time Notified:: 12:57 Ordering Provider: ASHLEY Brief History from admission: This is the second time H+P is done on this patient as first did not save. 67 year old female presents to the ER after developing nausea and vomiting and upper abdominal pain . Earlier in the day she had undergone an EUS with FNA of cystic mass of tail of the pancreas. She state she did well after the procedure until she ate something at home. The mass was an incidental finding on ct scan after she presented to the ER earlier in the month for lower abdominal pain. She has been diagnosed with inguinal hernia and has been following with general surgery for this. On presentation her lipase was [id number]. The GI [address] student education specialist was called from the ER and per report he indicated this may have secondary to the biopsy and indicated the patient be admitted to the medical service and they would be seen today. The patient is still having abdominal pain and nausea. No fever or chills, no emesis since last pm. DS: Summary 1) Pancreatitis, s/p EUS - Pt is a 67 y/o F who underwent EUS with FNA of cystic mass of the pancreatic tail 06/23/[address] Jae Nunez. - Pt developed worsening abdominal pain at home following the procedure. - On admission pt's lipase was elevated at 22K (06/23) and has improved to 6,045 (06/25) -> 902 (06/26) -> 464 (06/28) - CT A/P (06/24) - fluid within the peritoneal cavity since the prior exam and the gallbladder appears more distended . - Acute pancreatitis is of primary consideration with cystic areas in the tail of the pancreas which were evaluated on the patient's prior abdominal MRI from 06/2018 could be pseudocyst versus cystic neoplasm - abdominal pain improving (06/26) - Case d/w Dr. Trejo (06/25/18), appreciate assistance - Case d/w Dr. Lake (06/25/18), appreciate assistance - DC IVF start clear liquid diet - Continue pain mgmt was BP readings will allow Cholangiopancreatography MRI 06/26/18 1. Edematous pancreas with prominent cystic change again seen in the tail with peripancreatic fluid collections suggesting pancreatitis in the right clinical setting. 2. Small bilateral pleural effusions and abdominal ascites. 3. Marked distention of the gallbladder and cholelithiasis. 4. No intra or extrahepatic biliary ductal dilatation. pt denies pain tolerating diet diarrhea resolved C.diff neg 2) Hypotensive - improving - likely d/t pancreatitis and pain medication - No fever, no leukocytosis - DC IVFs - parameters on pain medications. 3) Anemia hgb 11 -> 9.4 -> 9.2 likely dilutional stable no sign active bleeding Time Spent with Patient Total time spent providing and/or coordinating discharge services: Quality: VTE Deep Vein Thrombosis/Pulmonary Embolism Present on Admission: No Exam Narrative Exam Narrative: GENERAL: This is a well-nourished, well-developed patient, in no apparent distress. CARDIOVASCULAR: Regular rate and rhythm RESPIRATORY: Clear to auscultation. Breath sounds equal bilaterally. GASTROINTESTINAL: Abdomen soft, nontender, nondistended. Normal active bowel sounds MUSCULOSKELETAL: Extremities without clubbing, cyanosis, or edema. NEURO: Alert & Oriented. Moves all ext x4 Results Labs on day of discharge: Labs from last 24 hours 06/28/18 06/27/18 06:15 14:22 Sodium 142 Potassium 3.6 Chloride 107 Carbon Dioxide 29.5 Anion Gap 6 BUN 4 L Creatinine 0.58 Estimated GFR Greater than 89 Random Glucose 104 Calcium 8.3 L Total Bilirubin 0.4 AST 32 ALT 12 Alkaline Phosphatase 104 Total Protein 5.6 L Albumin 2.4 L Lipase 464 H Stl C.difficile DNA Amp Negative St C. diff Tox Epid 027 Negative Preliminary micro results at discharge 06/26/18 21:00 Aerobic Blood Culture - Preliminary Blood - Peripheral No growth in 1 day Anaerobic Blood Culture - Preliminary No growth in 1 day 06/26/18 20:45 Aerobic Blood Culture - Preliminary Blood - Peripheral No growth in 1 day Anaerobic Blood Culture - Preliminary No growth in 1 day Impressions ITS Impressions Abdomen/Pelvis CT 06/24/18 00:00 CONCLUSION: There is more fluid within the peritoneal cavity since the prior exam and the gallbladder appears more distended . Acute pancreatitis is of primary consideration with cystic areas in the tail of the pancreas which were evaluated on the patient's prior abdominal MRI from 06/2018 could be pseudocyst versus cystic neoplasm. Bile Acid Absorption NM 06/26/18 00:00 CONCLUSION: 1. No cystic duct obstruction or biliary ductal obstruction. 2. Very little response to CCK injection suggesting biliary dyskinesia. Cholangiopancreatography MRI 06/26/18 00:00 CONCLUSION: 1. Edematous pancreas with prominent cystic change again seen in the tail with peripancreatic fluid collections suggesting pancreatitis in the right clinical setting. 2. Small bilateral pleural effusions and abdominal ascites. 3. Marked distention of the gallbladder and cholelithiasis. 4. No intra or extrahepatic biliary ductal dilatation. Chest X-Ray 06/26/18 06:00 CONCLUSION: Diffuse interstitial prominence and streaky basilar parenchymal opacities bilaterally.
--- NOTE | 2018-06-28 11:28 | P.PNGI ---
Subjective Interval history: Patient awake and alert ambulating in room Family present Patient reporting mild abdominal bloating with no abdominal discomfort States tolerating diet without nausea or vomiting Reports 1 soft bowel movement this a.m. Physical Exam Vital signs: Vital Signs 06/27/18 13:01 06/27/18 16:00 06/27/18 19:39 Temperature 99.2 F 99.7 F H 99.1 F Pulse Rate 79 83 95 H Respiratory Rate 20 20 18 Blood Pressure 158/73 H 157/92 H 157/81 H Pulse Oximetry 99 96 97 06/27/18 21:45 06/27/18 23:50 06/28/18 04:15 Temperature 99.3 F 99.1 F Pulse Rate 100 H 94 H 98 H Respiratory Rate 18 18 Blood Pressure 117/59 L 130/70 Pulse Oximetry 95 95 06/28/18 08:00 Temperature 99.9 F H Pulse Rate 90 Respiratory Rate 20 Blood Pressure 118/66 Pulse Oximetry 92 L Intake & Output 06/27/18 06/28/18 06/28/18 18:59 06:59 18:59 Intake Total 100 / 100 720 / 720 Balance 100 / 100 720 / 720 Weight 63.2 kg Intake: IV 100 / 100 Zosyn 4.5 GM Premix 4.5 gm In 100 / 100 100 ml @ 200 mls/hr IV.SIG Q6H NICOLE Rx#:[id number] Oral 720 / 720 Other: # Voids 4 3 Date of Last Bowel Movement 06/27/18 06/27/18 06/27/18 # Bowel Movements 4 - Constitutional no acute distress, cooperative - Routine HEENT Exam Head: Present: normocephalic ENT: Present: mucous membranes moist - Routine Neck Exam Present: supple - Routine Respiratory Exam Present: CTA bilaterally. Absent: accessory muscle use - Routine Cardiovascular Exam Present: S1, S2 - Routine Abdominal Exam Present: soft, normoactive bowel sounds. Absent: tenderness, distended - Routine Extremities Exam Absent: edema - Routine Skin Exam Present: dry, warm - Routine Neurological Exam Present: alert, oriented X3 Results - Labs CBC & Chem 7: 06/27/18 06:36 06/28/18 06:15 Laboratory Results - last 24 hr 06/27/18 06/28/18 14:22 06:15 Sodium 142 Potassium 3.6 Chloride 107 Carbon Dioxide 29.5 Anion Gap 6 BUN 4 L Creatinine 0.58 Estimated GFR Greater than 89 Random Glucose 104 Calcium 8.3 L Total Bilirubin 0.4 AST 32 ALT 12 Alkaline Phosphatase 104 Total Protein 5.6 L Albumin 2.4 L Lipase 464 H Stl C.difficile DNA Amp Negative St C. diff Tox Epid 027 Negative Microbiology 06/26/18 21:00 Blood - Peripheral Aerobic Blood Culture - Preliminary No growth in 2 days 06/26/18 21:00 Blood - Peripheral Anaerobic Blood Culture - Preliminary No growth in 2 days 06/26/18 20:45 Blood - Peripheral Aerobic Blood Culture - Preliminary No growth in 2 days 06/26/18 20:45 Blood - Peripheral Anaerobic Blood Culture - Preliminary No growth in 2 days 06/27/18 14:22 Stool Stool for WBCs - Final Rare WBC's Assessment and Plan - Plan Acute pancreatitis, MRCP today shows pancreatic cyst but no common bile duct dilatation HIDA scan shows biliary dyskinesia with EF of 10 and gallbladder wall thickening Patient notes first episode of pancreatitis, status post EUS with biopsy 3-4 days ago. Labs reviewed which show current hemoglobin 9.4 WBC count 8, lipase decreased to 902, Anemia could be acute on chronic disease but no obvious GI bleed for now. Appreciate general surgery input, no plans for cholecystectomy at this point. Discussed with patient the need for follow-up in the GI office post this hospital stay. 2-4 weeks 06/27/2018 Acute pancreatitis Biliary dyskinesia-no immediate plans for cholecystectomy as per general surgery Patient reports dark stools x1 episode this a.m. = WBC 7.8 hemoglobin 9.2 hematocrit 26.4--we will follow closely Lipase 692-much improved Patient denies abdominal discomfort nausea or vomiting Endorses one episode of loose stool this a.m., afebrile 06/28/2018 Acute pancreatitis-resolving, lipase 464 trending downwards, patient tolerating regular bland [id number] without complaints Biliary dyskinesia-per general surgery, no plans for cholecystectomy at this time Plan -Regular bland diet--low-fat -Pantoprazole 40 mg daily -Antiemetics and analgesics as per attending -Okay for discharge home from GI standpoint -Patient agrees to follow-up post discharge with advanced GI-known to practice -GI will sign off at this time, please notify for any further assistance This patient has been seen by myself and Dr. Escamilla and this note is written on his behalf - Attending Attestation Dr. Escamilla
== END 2018-06-28 14:00 | disposition home or self-care (01) | DRG 439 ==
LOC: PHED 17:06 → INTOOBSV 21:58 → PHEDA 21:58 → PH3 23:30 → HIMC 06-24 17:09 → N06 06-24 18:00
PROVIDERS: ADMIT Hospitalist; ATTEND Hospitalist
DX: F31.9 Bipolar disorder, unspecified; I10 Essential (primary) hypertension; K80.20 Calculus of gallbladder without cholecystitis without obstruction; J90 Pleural effusion, not elsewhere classified; K86.2 Cyst of pancreas; D64.9 Anemia, unspecified; K85.90 Acute pancreatitis without necrosis or infection, unspecified; Z79.899 Other long term (current) drug therapy; R18.8 Other ascites; K21.9 Gastro-esophageal reflux disease without esophagitis; K40.90 Unilateral inguinal hernia, without obstruction or gangrene, not specified as recurrent; I95.9 Hypotension, unspecified; E78.00 Pure hypercholesterolemia, unspecified
CPT/HCPCS: 71010; 71045; 74177; 74183; 76377; 78226; 80048; 80053; 83690; 83735; 85014; 85018; 85025; 87040; 87205; 87328; 87329; 87493; 87506; 90761; 90775; 93005; 96361; 96365; 96372; 96375; 99285; A9513; A9537; A9585; C1097; C9113; G0378; J1170; J1650; J1885; J2270; J2405; J2543; J2805; J3480; J7030; J7040; Q9963; Q9967